=== PATIENT | female | born 1975 | race African-American/Black ===

== ENCOUNTER 2025-04-28 10:48 | Outpatient (AMB) | payer BC, SELFPAY ==
[2025-04-28 10:58] VITALS: BP 120/70; BMI 37.8
--- NOTE | 2025-04-28 10:58 | A.OFFVIS_ITS ---
Vital Signs 04/28/25 10:58 Height 5 ft 11 in Weight 271 lb BMI 37.8 BP 120/70 Intake Visit Reasons: H/O Endo/External Referral/DO NOT RS Program Support Clerk Required: No Information Interpreted: non-clinical & clinical Accompanied by: Self / Same As Patient Allergies sulfamethoxazole (From Bactrim) Allergy (Intermediate, Verified 04/28/25 11:01) Rash sumatriptan (From Imitrex) Allergy (Intermediate, Verified 04/28/25 11:01) Palpitations trimethoprim (From Bactrim) Allergy (Intermediate, Verified 04/28/25 11:01) Rash Is last menstrual period known: No (hysterectomy) HPI Comments Details: Presenting for annual exam. No complaints. Last Pap/HPV was many years ago Last Mammogram was in 12/18 at [facility], no records available by according to patient was normal Last colonoscopy was in 04/19, the recommendation was to repeat in 5 years according to the patient, no records available [facility] Medical History (Updated 04/28/25 @ 11:23 by Adolfo Grant MD) Hyperlipidemia HTN (hypertension) Surgical History (Updated 04/28/25 @ 11:06 by Milly Rsoa CMA) Hx of hysterectomy Hx of tubal ligation Family History (Updated 04/28/25 @ 11:07 by Milly Rosa CMA) Mother HTN (hypertension) Diabetes Breast cancer Social History (Updated 04/28/25 @ 11:08 by Milly Rosa CMA) Household Members Other:: son Housing: House Alcohol intake: never Patient Tobacco Use Status: Never used Tobacco Use of substances other than those prescribed or required for medical reasons: No Current occupational status: employed Current occupation: [employer] Sexually active: No Sexual orientation: Straight/Heterosexual Gender identity: Female Female Reproductive History Menstrual Total pregnancies: 3 Full term: 2 Number of Living Children: 2 Review of Systems Const All systems reviewed & are unremarkable except as noted in HPI and below Card Reports as per HPI Resp Reports as per HPI GI Reports as per HPI and Reports no additional complaints Reports as per HPI Physical Exam Vital Signs: Last Vital Signs BP 120/70 04/28/25 10:58 BMI result Body Mass Index 37.8 Const General: cooperative, healthy appearing and comfortable Chest Chest palpation & inspection: normal inspection of the chest and normal palpation of entire chest wall Breast/axilla inspection: normal inspection of the breasts and normal inspection of the axillae Breast/axilla palpation: normal palpation of the breasts, normal palpation of the axillae and no axillary lymphadenopathy Resp Effort & Inspection: normal respiratory effort Auscultation: clear to auscultation bilaterally Percussion: percussion normal Cardio Palpation: normal PMI Rate: regular rate Rhythm: regular rhythm Heart sounds: no murmurs and no rubs Peripheral pulses: Peripheral pulses 2+ throughout GI Inspection: Yes normal to inspection Palpation (GI): Soft to palpation, nontender, no guarding, not rigid and No hepatosplenomegaly present Percussion: Yes normal to percussion Auscultation: normal bowel sounds Rectal Exam - Female: deferred General: Yes bladder normal to palpation External Female Exam: No lesion Speculum Exam - Vagina: normal appearance of the vagina, normal palpation, normal vaginal discharge and not erythematous Speculum Exam - Cervix: normal appearance of the cervix and normal palpation Bimanual exam- vagina & uterus: normal bimanual exam, normal palpation, uterine size normal, bladder normal to palpation, consistency normal and normal palpation Bimanual Exam- Adnexa, other: normal adnexae, no masses and no tenderness Assessment & Plan Assessment & Plan (1) Well woman exam: Code(s): Z01.419 - Encounter for gynecological examination (general) (routine) without abnormal findings Category: Medical Plan: Cotesting done. Next screening Mammogram scheduled in 12/19 at [facility]. Counseled the patient about the recommended dietary allowance of 1000 mg of Calcium & 600 IU of vitamin D. The patient was instructed to perform monthly self-breast exams and to schedule an annual exam in a year; All questions answered and the patient verbalized understanding. Instructed the patient to schedule annual exam in a year Coding Level of Care Code New Pt Prev Care 40-64y(46730) Diagnoses Well woman exam Z01.419
--- OUTSIDE RECORDS SUMMARY | 2025-04-28 12:36 | XMS_ITS | Patient Health Record ---
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 Name Role Phone Mireya FREEMAN, Tien Primary Care Provider Unavail able Kong Gutiérrez Unavailable [phone] Allergies Allergen (clinical drug ingredient) Drug/Non Drug Allergy documented on EMR Reaction Allergy Type Onset Date Status sumatriptan Imitrex Dizzy Drug Allergy Activ e sulfa hives, fever Drug Allergy Acti ve Reason For Referral No Information Medications Medication SIG (Take, Route, Frequency, Duration) Notes Start Date End Date Status Atorvastatin Calcium 20 MG 1 tablet Oral ly Once a day Active buPROPion HCl ER (XL) 150 MG 1 tablet in the morning Orally Once a day Active hydroCHLOROthiazide 25 MG 1 tablet in th e morning Orally Once a day Active Lisinopril 40 MG 1 tablet Orally Once a day Active Aspirin 81 MG 1 tablet Orally Once a day Active Metoprolol Tartrate 100 MG 1 tablet with food Orally Twice a day Active Omeprazole 20 MG 1 capsule Orally Onc e a day Active Vitamin D 2000 UNIT 1 tablet Orally Once a day Active Social History Tobacco Use: Social History Observation Description Date Details (start date - stop date) Never Smoker NA - NA Tobacco Use/Smoking Question Answer Notes Are you a: nonsmoker Additional Findings: Tobacco Non-User Current no n-smoker Alcohol Screen Question Answer Notes Did you have a drink containing alcohol in the p ast year? No Points 0 Interpretation Negative Tobacco use other than smoking: Question Answer Notes Are you an other tobacco user? No Problems Problem Type SNOMED Code ICD Code Onset Dates Problem Status W/U Status Risk Notes Problem Plantar fascial fibromatosis (17802349) Plantar fascial fibromatosis (M72.2) Active confirmed Plan Of Treatment No Information Insurance Providers Payer Name Payer Address Payer Phone Subscriber Number Group Number Insured Name Patient Relationship to Insured Coverage Start Date Coverage End Date [facility] [address] [place] [address] [id number] Joyce Steward Self - patient is the insured Medical (General) History Medical History History ICD Code Back,Hip,and Knee pain CAD (Cholesterol) Depression Headaches Hiatal hernia High blood pressure Reflux ( GERD) Chicken pox Surgical History Surgery Date(Month/Year) cyst removal, breast 1988 tubal ligation 1999 ectopic removal 2005 hemorrhoidectomy 2014
--- OUTSIDE RECORDS SUMMARY | 2025-04-28 12:36 | XMS_ITS | Encounter Summary ---
Author Organization 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 Role Phone Tien Gomes MD Primary Care Provider Encounter Details Date Type Department Care Team ([facility] st Contact Info) Description 04/22/2024 Lab Requisition [facility] - Main Lab [address] [place] [id number] Sumanth Cooper MD [address] [facility] [address] [place] [id number] Hemorrhage of anus and rectum Social History Tobacco Use Types Packs/Day Years Used Date Smoking Tobacco: Never Assessed Comments Unknown Sex and Gender Information Value Date Recorded Sex Assigned at Not on file Legal Sex Female 2:20 AM EST Gender Identity Not on file Sexual Orientation Not on file documented as of this encounter Plan of Treatment Not on file documented as of this encounter Procedures Procedure Name Priority Date/Time Associated Diagnosis Comments TISSUE EXAM Routine 04/21/2024 Hemorrhage of anus and rectum documented in this encounter Results * Tissue Exam (04/21/2024) Final Diagnosis A. Large Intestine, Cecum, polyp biopsy: - Tubular adenoma. B. Large Intestine, Sigmoid Colon, polyp biopsy: - Hyperplastic polyp. 04/24/2024 12:34 PM [facility] at 1234 EST Clinical Information Hematochezia Polyp 04/24/2024 12:34 PM EST [facility] Gross Description A. Large Intestine, Cecum, polyp biopsy: Labeled cecum colon polyp biopsy . Received in formalin, is an approximately 0.4 cm in greatest diameter rubbery, ortega tissue fragment, which is inked black at the base, wrapped in paper and submitted in toto in one cassette, one piece, multiple levels. B. Large Intestine, Sigmoid Colon, polyp biopsy: Labeled sigmoid colon polyp biopsy . Received in formalin, is an approximately 0.3 cm in greatest diameter soft, white-ortega tissue fragment, which is wrapped in paper and submitted in toto in one cassette, one piece, multiple levels. dvb/SL 04/24/2024 12:34 PM [facility] Disclaimer Unless otherwise specified, all tissue is 10% NB formalin fixed and paraffin embedded. 04/24/2024 12:34 PM [facility] Tissue Sigmoid colon structure / Unknown 04/21/2024 04/22/2024 10:58 AM EST Tissue specimen (specimen) Sigmoid colon structure / Unknown 04/21/2024 04/22/2024 10:58 AM EST us Sumanth Cooper MD LAB PATHOLOGY ORDERABLES Fi nal Result [facility] [address] [place] [address], documented in this encounter Visit Diagnoses Diagnosis Hemorrhage of anus and rectum Hemorrhage of rectum and anus documented in this encounter Care Teams School Photograph Editor Relationship Specialty Start Date End Date Tien Gomes MD [address] PCP - General Internal Medicine 03/31/24 documented as of this encounter
--- OUTSIDE RECORDS SUMMARY | 2025-04-28 12:36 | XMS_ITS | Data Portability ---
Author Organization [facility], Main Office Address [address] [facility] [address] [place] [id number] Care Team Providers Care Dredge Boat Engineer Name Role Phone TIEN GARCIA Primary Care Provider ANDRES HIGGINS Business Area Director SLEEP MEDICINE SERVICES Sleep Medicine [phone] LAUREN ENNIS Power Plant Inspector MARK WOMACK Phys. Med. & Rehab ORTHOPRIDDHI HERNANDEZ General Surgeon DC PORTILLO Urologist [facility] Supervisor Furnace Room [employer] [facility] OPTICAL Hvac Maintenance Technician RADHA LEONARDO Capital Campaign Fundraiser Assessment Encounter Date Assessment Date Assessment LastModified by Organization Details LastModified Time 01/06/2025 01/06/2025 Discussed with patient the signs/symptom s warranted for a return to office visit and/or an ER visit. Patient understood and agreed with the plan. Not available 01/06/2025 13:49:03 Plan of Treatment Reminders Order Date Submit Date Provider Last Modified By Organization Details Last Modified Time Details Appointments FOLLOW UP 30MIN 2025 11:00A M Tien Garcia MD Not available Not available Not available Lab urinalys is, complete 2024 025 AMINTA [facility] (Centralized Electronic Ordering - All Locations), Patient Can Go To The Location Of Their Choice, [id number] 12/12/2024 08:06:49 magnesiu m, serum or plasma 2024 025 AMINTA [facility], [address], [address], [place], [address], 12/12/2024 08:06:51 LDL, direct, serum 2024 025 AMINTA [facility] (Centralized Electronic Ordering - All Locations), Patient Can Go To The Location Of Their Choice, [address] 12/12/2024 08:06:50 CMP, serum or plasma 2024 025 AMINTA [facility], [address], [address], [place], [address], 12/12/2024 08:06:48 HbA1c (hemoglo bin A1c), blood 2024 025 AMINTA [facility], [address], [address], [place], [address], 12/12/2024 08:06:50 vitamin D, 25-hydro xy, total, serum 2024 025 AMINTA [facility], [address], [address], [place], [address], 12/12/2024 08:06:51 Referral physical therapis t referral - right sided neck pain. localize d. 2024 025 [facility], [address] [facility] , [address], [place], [address], 01/06/2025 13:56:46 dermatol ogist referral - for left scalp lesion 2024 025 [facility], [address], [address], [place], [address], 12/11/2024 10:43:06 gynecolo gist referral - Patient to schedule 2024 025 hiren [facility] Automotive Diagnostic Technician, [address], [address], [place], [address], 12/11/2024 11:32:52 sleep medicine referral 2024 025 [facility], [address], [address], [place], [address], 12/11/2024 10:58:28 Procedures cerumen removal (PROC) 2024 025 [facility] In-Office Order, Internal Use Only DO Not Attach Compendium DO Not Attach Compendium, Do Not Delete/merge, [id number] 12/28/2024 15:29:43 Surgeries None recorded . Imaging MAMMO, screenin g, bilatera l - Perform Diagnost ic Mammogra m and Breast Ultrasou nd if needed / Perform Ultrasou nd Guided Aspirati on and/or Breast Biopsy if warrante d 2024 025 [facility], [address], [place], [address], 01/20/2025 14:29:51 Medication Orders Medrol (Sampson) 4 mg tablets in a dose pack 2024 025 [facility], [address] [place] [address], [address], 01/06/2025 13:53:41 magnesiu m 100 mg (as glycinat e) capsule 2024 025 [facility], [address] [place] [address], [address], 01/06/2025 13:54:54 ketocona zole 2 % shampoo 2024 025 [facility], [address] [place] [address], [address], 12/11/2024 10:36:18 magnesiu m 100 mg (as glycinat e) capsule 2024 025 [facility], [address] [facility], [place], [address], 12/11/2024 10:36:10 Patient TargetsNo targets recorded. Patient Instructions Encounter Date Encounter Id Patient Instructions Last Modified By Organization Details Last Modified Time 12/11/2024 [id number] Cervical Cancer Screening awychowski Not available 12/11/2024 10:36:11 body mass index: care instructions awychowski Not available 12/11/2024 10:36:11 learning about healthy weight awychowski Not available 12/11/2024 10:36:11 sleep apnea: care instructions awychowski Not available 12/11/2024 10:36:11 earwax blockage: care instructions awychowski Not available 12/11/2024 10:36:11 Metabolic Dysfunction-Asso ciated Steatotic Liver Disease (MASLD): Care Instructions awychowski Not available 12/11/2024 10:36:11 prediabetes: care instructions awychowski Not available 12/11/2024 10:36:11 constipation: care instructions awychowski Not available 12/11/2024 10:36:11 01/06/2025 [id number] neck pain: care instructions Not available 01/06/2025 13:53:33 [facility] follow [facility] visit, all current and discharge medications (OTC, herbal therapies, supplements) reviewed and reconciled with patient and or caregiver, including potential side effects, drug interactions, instructions, and the consequences of not taking medication. Reviewed potential barriers to medication adherence, such as side effects from medication or cost of medication. [email or web address] Not available 01/06/2025 13:33:35 Reason for Referral Audio Director Referral for Sc reening for malignant neoplasm of cervix Patient to schedule Referring Physician: Family Lisa Medicine, Encounter Date: 12/11/2024 Sleep Medicine Referral for Obstructive sleep apnea syndrome Referring Physician: Family Lisa Medicine, Encounter Date: 12/11/2024 Machinist Job Setter Referral for L esion of scalp for left scalp lesion Referring Physician: Family Venessa Gonzalez, Encounter Date: 12/11/2024 Physical Therapist Referral for Neck pain right sided neck pain. localized. Referring Physician: Natividad Foley, Family Medicine, Encounter Date: 01/06/2025 Results Created Date Observation Date Name Description Value Unit Range Abnormal Flag Note LastModifiedBy Organization Detail LastModifiedTime 09/29/1909/28/2024 exter nal elect rocar diogr aphic recor rnoy more than 48 hours up to 7 days; recor rony, chelsey sis, revie w and inter preta tion (PROC ) Placement BY ADDY Jones Not Available In-Office Order Internal Use Only DO Not Attach Compendium DO Not Attach Compendium, Do Not Delete/merge, [id number] 09/03/2024 15:40:44 12/12/1912/11/2024 COMP. METAB OLIC PANEL (14) glucose 102 mg/dL 70-99 above high normal Not Available [facility] ([facility]) [address] [place], [address], 12/12/2024 08:06:48 12/12/19 25 12/11/2024 COMP. METAB OLIC PANEL (14) BUN 9 mg/dL 6-24 normal Not Available [facility] ([facility]) [address] [place], [address], 12/12/2024 08:06:48 12/12/19 25 12/11/2024 COMP. METAB OLIC PANEL (14) creatinine 0.66 mg/dL 0.57-1 .00 normal Not Available [facility] ([facility]) [address] [place], [address], 12/12/2024 08:06:48 12/12/19 25 12/11/2024 COMP. METAB OLIC PANEL (14) eGFR 107 mL/mi n/1.7 3 >59 normal Not Available [facility] ([facility]) [address] [place], [address], 12/12/2024 08:06:48 12/12/19 25 12/11/2024 COMP. METAB OLIC PANEL (14) BUN/creatini ne ratio 14 9-23 normal Not Available [facility] ([facility]) [address] [facility] [place], [address], 12/12/2024 08:06:48 12/12/19 25 12/11/2024 COMP. METAB OLIC PANEL (14) sodium 141 mmol/ L 134-14 4 normal Not Available [facility] ([facility]) [address] [facility] [place], [address], 12/12/2024 08:06:48 12/12/19 25 12/11/2024 COMP. METAB OLIC PANEL (14) potassium 3.6 mmol/ L 3.5-5. 2 normal Not Available [facility] ([facility]) [address] [facility], [place], [address], 12/12/2024 08:06:48 12/12/19 25 12/11/2024 COMP. METAB OLIC PANEL (14) chloride 102 mmol/ L 96-106 normal Not Available [facility] ([facility]) [address] [facility] [place], [address], 12/12/2024 08:06:48 12/12/19 25 12/11/2024 COMP. METAB OLIC PANEL (14) carbon dioxide, total 25 mmol/ L 20-29 normal Not Available [facility] ([facility]) [address] [facility] [place], [address], 12/12/2024 08:06:48 12/12/19 25 12/11/2024 COMP. METAB OLIC PANEL (14) calcium 9.3 mg/dL 8.7-10 .2 normal Not Available [facility] ([facility]) [address] [facility] [place], [address], 12/12/2024 08:06:48 12/12/19 25 12/11/2024 COMP. METAB OLIC PANEL (14) protein, total 6.8 g/dL 6.0-8. 5 normal Not Available [facility] ([facility]) [address] [place], [address], 12/12/2024 08:06:48 12/12/19 25 12/11/2024 COMP. METAB OLIC PANEL (14) albumin 4.2 g/dL 3.9-4. 9 normal Not Available [facility] ([facility]) [address] [place], [address], 12/12/2024 08:06:48 12/12/19 25 12/11/2024 COMP. METAB OLIC PANEL (14) globulin, total 2.6 g/dL 1.5-4. 5 Not Available [facility] ([facility]) [address] [place], [address], 12/12/2024 08:06:48 12/12/19 25 12/11/2024 COMP. METAB OLIC PANEL (14) bilirubin, total 0.3 mg/dL 0.0-1. 2 normal Not Available [facility] ([facility]) [address] [place], [address], 12/12/2024 08:06:48 12/12/19 25 12/11/2024 COMP. METAB OLIC PANEL (14) alkaline phosphatase 111 IU/L 44-121 normal Not Available [facility] ([facility]) [address] [place], [address], 12/12/2024 08:06:48 12/12/19 25 12/11/2024 COMP. METAB OLIC PANEL (14) AST (SGOT) 17 IU/L 0-40 normal Not Available [facility] ([facility]) [address] [place], [address], 12/12/2024 08:06:48 12/12/19 25 12/11/2024 COMP. METAB OLIC PANEL (14) ALT (SGPT) 16 IU/L 0-32 normal Not Available [facility] ([facility]) [address], [place], [address], 12/12/2024 08:06:48 12/12/19 25 12/11/2024 URINA LYSIS , COMPL ETE specific gravity 1.024 1.005- 1.030 normal Not Available [facility] ([facility]) [address] [place], [address], 12/12/2024 08:06:49 12/12/19 25 12/11/2024 URINA LYSIS , COMPL ETE pH 6.5 5.0-7. 5 normal Not Available [facility] ([facility]) [address] [place], [address], 12/12/2024 08:06:49 12/12/19 25 12/11/2024 URINA LYSIS , COMPL ETE urine-color Yellow yellow Not Available [facility] ([facility]) [address] [place], [address], 12/12/2024 08:06:49 12/12/19 25 12/11/2024 URINA LYSIS , COMPL ETE appearance Clear clear Not Available [facility] ([facility]) [address] [place], [address], 12/12/2024 08:06:49 12/12/19 25 12/11/2024 URINA LYSIS , COMPL ETE WBC esterase Negati ve negati ve Not Available [facility] ([facility]) [address] [place], [address], 12/12/2024 08:06:49 12/12/19 25 12/11/2024 URINA LYSIS , COMPL ETE protein 1+ negati ve/tra ce abnormal Not Available [facility] ([facility]) [address] [place], [address], 12/12/2024 08:06:49 12/12/19 25 12/11/2024 URINA LYSIS , COMPL ETE glucose Negati ve negati ve Not Available [facility] ([facility]) [address] [facility], [place], [address], 12/12/2024 08:06:49 12/12/1912/11/2024 URINA LYSIS , COMPL ETE ketones Negati ve negati ve Not Available [facility] ([facility]) [address] [facility], [place], [address], 12/12/2024 08:06:49 12/12/19 25 12/11/2024 URINA LYSIS , COMPL ETE occult blood Negati ve negati ve Not Available [facility] ([facility]) [address] [facility], [place], [address], 12/12/2024 08:06:49 12/12/1912/11/2024 URINA LYSIS , COMPL ETE bilirubin Negati ve negati ve Not Available [facility] ([facility]) [address] [facility], [place], [address], 12/12/2024 08:06:49 12/12/1912/11/2024 URINA LYSIS , COMPL ETE urobilinogen ,semi-qn 0.2 mg/dL 0.2-1. 0 normal Not Available [facility] ([facility]) [address] [place], [address], 12/12/2024 08:06:49 12/12/1912/11/2024 URINA LYSIS , COMPL ETE nitrite, urine Negati ve negati ve Not Available [facility] ([facility]) [address] [place], [address], 12/12/2024 08:06:49 12/12/1912/11/2024 URINA LYSIS , COMPL ETE microscopic examination See below: Micro scopi c was indic ated and was perfo rmed. Not Available [facility] ([facility]) [address] [place], [address], 12/12/2024 08:06:49 12/12/19 25 12/11/2024 URINA LYSIS , COMPL ETE microscopic examination PLANT HEALTH MANAGER Not Available [facility] ([facility]) [address] [facility], [place], [address], 12/12/2024 08:06:49 12/12/19 25 12/12/2024 URINA LYSIS , COMPL ETE WBC 0-5 /hpf 0 - 5 Not Available [facility] ([facility]) [address] [facility], [place], [address], 12/12/2024 08:06:49 12/12/19 25 12/12/2024 URINA LYSIS , COMPL ETE RBC None seen /hpf 0 - 2 Not Available [facility] ([facility]) [address] [facility], [place], [address], 12/12/2024 08:06:49 12/12/19 25 12/12/2024 URINA LYSIS , COMPL ETE epithelial cells (non renal) >10 /hpf 0 - 10 abnormal Not Available [facility] ([facility]) [address] [facility], [place], [address], 12/12/2024 08:06:49 12/12/19 25 12/12/2024 URINA LYSIS , COMPL ETE epithelial cells (renal) PLANT HEALTH MANAGER Not Available [facility] ([facility]) [address] [facility], [place], [address], 12/12/2024 08:06:49 12/12/19 25 12/12/2024 URINA LYSIS , COMPL ETE casts None seen /lpf none seen Not Available [facility] ([facility]) [address] [facility], [place], [address], 12/12/2024 08:06:49 12/12/19 25 12/12/2024 URINA LYSIS , COMPL ETE cast type PLANT HEALTH MANAGER Not Available [facility] ([facility]) [address] [facility], [place], [address], 12/12/2024 08:06:49 12/12/19 25 12/12/2024 URINA LYSIS , COMPL ETE crystals PLANT HEALTH MANAGER Not Available [facility] ([facility]) [address] [facility], [place], [address], 12/12/2024 08:06:49 12/12/19 25 12/12/2024 URINA LYSIS , COMPL ETE crystal type PLANT HEALTH MANAGER Not Available [facility] ([facility]) [address] [facility], [place], [address], 12/12/2024 08:06:49 12/12/19 25 12/12/2024 URINA LYSIS , COMPL ETE mucus threads PLANT HEALTH MANAGER Not Available [facility] ([facility]) [address] [facility], [place], [address], 12/12/2024 08:06:49 12/12/19 25 12/12/2024 URINA LYSIS , COMPL ETE bacteria Few none seen/f ew Not Available [facility] ([facility]) [address] [facility], [place], [address], 12/12/2024 08:06:49 12/12/1912/12/2024 URINA LYSIS , COMPL ETE yeast PLANT HEALTH MANAGER Not Available [facility] ([facility]) [address] [facility], [place], [address], 12/12/2024 08:06:49 12/12/19 25 12/12/2024 URINA LYSIS , COMPL ETE trichomonas PLANT HEALTH MANAGER Not Available [facility] ([facility]) [address] [facility], [place], [address], 12/12/2024 08:06:49 12/12/19 25 12/12/2024 URINA LYSIS , COMPL ETE comment PLANT HEALTH MANAGER Not Available [facility] ([facility]) [address] [facility], [place], [address], 12/12/2024 08:06:49 12/12/19 25 12/12/2024 LDL FRANNIE STERO L (DIRE CT) LDL chol. (direct) 127 mg/dL 0-99 above high normal Not Available [facility] ([facility]) [address] [facility], [place], [address], 12/12/2024 08:06:50 12/12/19 25 12/12/2024 LDL FRANNIE STERO L (DIRE CT) LDL direct comment: PLANT HEALTH MANAGER Not Available [facility] ([facility]) [address] [facility], [place], [address], 12/12/2024 08:06:50 12/12/19 25 12/11/2024 HEMOG LOBIN A1C hemoglobin A1C 6.3 % 4.8-5. 6 above high normal Predi abete s: 5.7 - 6.4 Diabe guillermo: >6.4 Glyce george contr ol for adult s with diabe guillermo: <7.0 Not Available [facility] ([facility]) [address] [facility], [place], [address], 12/12/2024 08:06:50 12/12/19 25 12/12/2024 VITAM IN D, 25-HY DROXY vitamin D, 25-hydroxy 28.6 NG/mL 30.0-1 00.0 below low normal Vitam in D defic iency has been defin ed by the Insti tute of Medic ine and an Endoc rine Socie ty pract ice guide line as a level of serum 25-OH vitam in D less than 20 ng/mL (1,2) . The Endoc rine Socie ty went on to furth er defin e vitam in D insuf ficie ncy as a level betwe en 21 and 29 ng/mL (2). 1. IOM (Inst itute of Medic ine). 2010. Dieta ry refer ence intak es for calci um and D. Abdulkadir marmolejo [place]: The [facility] Press . 2. Iban crews MF, Kranthi ey [place], Stephanie off-F errar i COOPER, et al. Evalu ation , treat ment, and preve ntion of vitam in D defic iency : an Endoc rine Socie ty clini aleksandar pract ice guide line. JCEM. 2010; 96(7) :1911 -30. Not Available [facility] ([facility]) [address] [facility], [place], [address], 12/12/2024 08:06:51 12/12/19 25 12/12/2024 MAGNE SIUM magnesium 2.0 mg/dL 1.6-2. 3 normal Not Available [facility] ([facility]) [address] [facility], [place], [address], 12/12/2024 08:06:51 12/29/1912/28/2024 cerum en remov al (PROC ) done by Maryan Not Available In-Office Order Internal Use Only DO Not Attach Compendium DO Not Attach Compendium, Do Not Delete/merge, [id number] 12/28/2024 15:03:52 10/07/19 25 09/28/2024 exter nal elect rocar diogr aphic recor ding more than 48 hours up to 7 days; recor ding, chelsey sis, revie w and inter preta tion (PROC ) No observ ation record ed. AMINTA In-Office Order Internal Use Only DO Not Attach Compendium DO Not Attach Compendium, Do Not Delete/merge, [id number] 10/07/2024 12:13:48 01/21/20 25 01/20/2025 MAMMO , scree yeimy, digit al, bilat eral PROCED URE: MM Digita l Mammo Screen ing INDICA TION: Screen ing for breast cancer . COMPAR IVIS: Multip le priors , most recent 024 TECHNI QUE: Full-f ield digita l CC and MLO 3D tomosy nthesi s images of both breast s were acquir ed. Comput er-aid ed detect ion (CAD) was utiliz ed in the interp retati on of this study. DENSIT Y: There are scatte red areas of fibrog landul ar densit y. FINDIN GS: No suspic ious masses , suspic ious microc alcifi cation s, or areas of suzanne ectura l distor tion are seen in either breast to sugges t malign dhiraj. IMPRES CONCHA: No mammog raphic eviden ce of malign dhiraj. RECOMM ENDATI ON: Annual mammog raphic screen ing BI-RAD S: 1 (Negat shama) Lay letter mailed to fady pizarro WSN: [id number] Orderi ng Physic tasha: Tien Byrnes Dictat ed By: Licha Alanis MD Dictat ed Date/T michelle: 2:21 pm Review ed By: Licha Aalnis MD Signed By: Licha Alanis MD Signed Date/T michelle: 2:21 pm Transc ribed By: NICKY Transc riptio n Date/T michelle: 2:18 pm Birads : Fady pizarro Class: Outpat ient [id number] (Outpt Imaging) [address] [place], [address], 01/26/2025 15:04:58 01/21/2001/20/2025 MAMMO , scree yeimy, bilat eral No observ ation record ed. [email or web address] [facility] [address] [place], [address], 01/26/2025 15:05:21 Result Notes Documentation Provider Name and Address Organization Details Recorded Time Mammo, Screening, Digital, Bilateral : PROCEDURE: MM Digital Mammo Screening INDICATION: Screening for breast cancer. COMPARISON: Multiple priors, most recent 01/18/2024 TECHNIQUE: Full-field digital CC and MLO 3D tomosynthesis images of both breasts were acquired. Computer-aided detection (CAD) was utilized in the interpretation of this study. DENSITY: There are scattered areas of fibroglandular density. FINDINGS: No suspicious masses, suspicious microcalcifications, or areas of architectural distortion are seen in either breast to suggest malignancy. IMPRESSION: No mammographic evidence of malignancy. RECOMMENDATION: Annual mammographic screening BI-RADS: 1 (Negative) Lay letter mailed to patient WSN: [id number] Ordering Physician: Tien Garcia Dictated By: Dean Alanis MD Dictated Date/Time: 01/20/25 2:21 pm Reviewed By: Dean Aalnis MD Signed By: Dean Alanis MD Signed Date/Time: 01/20/25 2:21 pm Transcribed By: NICKY Tape Recorder Repairer Date/Time: 01/20/25 2:18 pm Birads: Patient Class: Outpatient Penelope Willoughby natalie [facility] 01/26/2025 15:04:58 Problems Name Problem SNOMED Code Status Onset Date Resolution Date Notes Provider Name and Address Organization Details Recorded Time Atypical squamous cells of undetermi sarah significa nce on cervical Papanicol aou smear 772423099 Completed 201102/03/2016 Tien Garcia MD [address] [facility] [address], [place], [address] [facility] 6 11:19:33 Migraine 61297984 Active 2015 SHE Majano [facility] 3 10:12:38 Chronic constipat ion 963225882 Active 2015 [facility] 3 10:12:38 Hemorrhoi ds 34752822 Active 2015 SHE Majano [facility] 3 10:12:38 Gastroeso phageal reflux disease 220435318 Active 2015 SHE Bowman [facility] 5 14:31:25 Hypertens shama disorder 26331726 Active 2015 Kaelyn estrada [facility] 8 09:28:47 Hyperchol esterolem ia 84625413 Active 2015 Kaelyn estrada [facility] 8 09:28:47 Genital herpes simplex 90786048 Active 2015 SHE Majano [facility] 3 10:12:38 Exercise- induced asthma 77829185 Active 2015 SHE Majano, [facility] 3 10:12:38 Obstructi ve sleep apnea syndrome 71997306 Active 2015 auto CPAP 6-16cm H2O SHE Majnao, [facility] 3 10:12:38 Uterine leiomyoma 65830514 Completed 201607/02/2017 Tien Garcia MD [address] [facility] [address], [place], [address] , [facility] 8 11:07:44 Vitamin D deficienc y 38957826 Active 2016 Aliya Mehdi SHE Rodriguez, [facility] 3 10:12:38 Proteinur ia 72987164 Completed 201607/20/2019 Tien Garcia MD [address] [facility] [address] [facility], [place], [address] , [facility] 5 06:27:36 Pain of multiple joints 77113141 Completed 201607/02/2017 Tien Garcia MD [address] [address], [place], [address] , [facility] 8 11:07:48 Foot pain 16840054 Completed 201607/02/2017 Tien Garcia MD [address] [facility] [address] [facility], [place], [address] , [facility] 8 11:07:27 Proteinur ia 83474082 Active 2016 Tien Garcia MD [address] [address], [place], [address] , [facility] 5 06:27:36 Atypical chest pain 362419955 Completed 201607/18/2018 Tien Garcia MD [address] [address], [place], [address] , [facility] 9 09:11:17 Major depressio n in remission 66437186 Active 2017 SHE Majano, [facility] 3 10:12:38 History of endometri osis 68156693999 477151 Active 2017 SHE Majano, [facility] 3 10:12:38 Non-alcoh olic fatty liver 603970554 Active 2017 Aliya SHE Fallon, [facility] 3 10:12:38 Plantar fasciitis 623860843 Completed 201807/20/2019 left Tien Garcia MD [address], [place], [address] , [facility] 0 10:52:36 Pityriasi s versicolo r 60242452 Active 2018 SHE Majano, [facility] 3 10:12:38 Macromast ia 444076355 Active 2018 [facility], [facility] 3 10:12:38 Morbid obesity 563594714 Active 2018 SHE Majano, [facility] 3 10:12:38 Impaired fasting glycemia 689344849 Completed 201807/20/2019 Tien Garcia MD [address], [place], [address] , [facility] 1 13:52:13 Prolonged QT interval 300342120 Active 2018 SHE Majano, [facility] 3 10:12:38 Knee pain Active 2018 SHE Majano, [facility] 3 10:12:38 Sprain of medial collatera l ligament of knee 35346780 Completed 201807/20/2019 Tien Garcia MD [address] [address], [place], [address] , [facility] 0 10:58:51 Osteoarth ritis of right hip joint 20759357633 9107 Active 2019 SHE Majano, [facility] 3 10:12:38 Uterine cervix absent 772599557 Active 2020 Tien Garcia MD [address] [address], [place], [address] , [facility] 1 08:54:29 Impaired fasting glycemia 854203261 Active 2020 SHE Majano, [facility] 3 10:12:38 Blood in urine 89767194 Completed 202003/21/2021 Tien Garcia MD [address] [address], [place], [address] , [facility] 1 09:02:04 Leukocyto sis 857972246 Completed 202003/21/2021 Tien Garcia MD [address] [address], [place], [address] , [facility] 1 09:03:09 Alkaline phosphata se above reference range 427072684 Active [facility] 3 10:12:38 Osteoarth ritis of wrist 945295465 Active 2020 SHE Majano, [facility] 3 10:12:38 Eczema 86010958 Completed 202112/09/2023 Tien Garcia MD [address] [facility] [address], [place], [address] , [facility] 4 17:02:37 Constipat ion 57288407 Completed 202212/09/2023 Tien Garcia MD [address] [facility] [address], [place], [address] , [facility] 4 17:02:23 Pain in right thumb 48359170344 07803 Completed 202211/22/2022 Tien Garcia MD [address] [facility] [address], [place], [address] , [facility] 3 15:18:55 Pain of right knee joint 91080380014 4100 Completed 202212/09/2023 Tien Garcia MD [address] [facility] [address], [place], [address] , [facility] 4 14:51:59 Prediabet es 320473863 Active 2022 SHE Majano, [facility] 3 10:12:38 Uterus absent 667177286 Active 2023 Tien Garcia MD [address] [facility] [address], [place], [address] , [facility] 4 15:00:10 Irritable bowel syndrome character ized by constipat ion 317771638 Active 2023 Tien Garcia MD [address] [facility] [address], [place], [address] , [facility] 4 20:20:51 Lipoma of upper arm 769340557 Active 2023 Tien Garcia MD [address] [facility] [address], [place], [address] , [facility] 4 09:37:13 Tubular adenomato us polyp of colon 000187243 Active 2023 Tien Garcia MD [address] [facility] [address], [place], [address] , [facility] 4 15:20:49 Palpitati ons 21074990 Active 2024 Tien Garcia MD [address] [facility] [address], [place], [address] , [facility] 5 17:23:00 Right bundle branch block 31072497 Active 2024 Tien Garcia MD [address] [facility] [address], [place], [address] , [facility] 5 17:27:14 Premature atrial contracti on 600073228 Active 2024 Tien Garcia MD [address] [facility] [address], [place], [address] , [facility] 5 06:37:58 Multiple premature ventricul ar complexes 686382029 Active 2024 Tien Garcia MD [address] [facility] [address], [place], [address] , [facility] 5 06:38:06 Body mass index 40+ - severely obese 150188793 Active 2024 Tien Garcia MD [address] [facility] [address], [place], [address] , [facility] 5 10:16:50 Problem Notes None recorded. Procedures Surgical History Date Name Laterality Status Provider Name and Address Organization Details Recorded Time 025 Most Recent Mammogram completed Penelope Willoughby [facility] 01/26/2025 15:04:54 025 Mammogram screening completed Penelope Willoughby [facility] 01/26/2025 15:04:34 024 Colonoscopy completed Tien Garcia MD [address] [facility], [place], [address], [facility] 04/24/2024 15:20:33 019 electrocardiogram with exercise test completed Tien Garcia MD [address] [facility] [address] [facility], [place], [address], [facility] 03/11/2019 06:40:03 017 Date of Last Pap Smear completed Anna Ramos MA [facility] 08/02/2016 09:17:39 016 Advanced Care Planning completed Tien Garcia MD [address] [address], [place], [address], [facility] 02/03/2016 10:34:39 015 Hemorrhoidectomy completed Tien Garcia MD [address] [address], [place], [address], [facility] 02/03/2016 10:09:57 013 Hysterectomy completed Alma Alejandro RN [facility] 03/31/2019 14:39:05 011 Date of Last Colonoscopy completed Kaelyn Sanders [facility] 08/08/2016 13:03:02 011 Colonoscopy completed Kaelyn Sanders [facility] 08/08/2016 13:02:49 Breast Surgery completed Anna Ramos MA [facility] 02/03/2016 09:42:35 Tubal Ligation completed Anna Ramos MA [facility] 02/03/2016 09:42:41 Imaging Results None recorded. Procedure Notes None recorded. Medical Equipment None Reported. Allergies Allergen ID Allergen Name Allergen Category Reaction Reaction Severity Criticality Documentation Date Start Date Code Code System Note Provider Name and Address Organization Details Recorded Time 05882 Bactrim medicatio n fever Not available Not available 02/03/2016 64630 9 [facility] 6 09:38:48 48545 Imitrex medicatio n other Not available Not available 02/03/2016 62258 3 RxNorm camacho donohue and [facility] 7 09:10:38 73245 sulfameth oxazole / trimethop rim medicatio n Not available Not available Not available 04/09/20252023 61141 RxNorm Other React ion(s ): n/v/f unrec ogniz ed react ion (text : GI intol eranc e, code: [id number]) (from [facility] e) Not Available [employer] - prod 5 03:15:24 61618 sumatript an medicatio n Not available Not available Not available 04/09/20252023 76192 RxNorm Not Available [employer] - prod 5 03:15:24 Medications Name Sig Start Date Stop Date Status Note LastModified by Organization Details LastModified Time vitamin d3 (frannie) 50mcg cap TAKE 2 CAPSULES BY MOUTH ONCE DAILY 01/06 completed Not Available Not Available Not Available eq vegatable laxative8. 6mg tab 03/21 completed Not Available Not Available Not Available cyclobenza shwetha 10 mg tablet TAKE 1 TABLET BY MOUTH THREE TIMES DAILY NEEDED FOR MUSCLE SPASMS FOR UP TO 7 DAYS. active Not Available Not Available No t Available amoxicilli n 500 mg capsule 10/27 completed Not Available Not Available Not Available Miralax 17 gram/dose oral powder Take 17 g every day by oral route as needed. 12/11 completed Not Available Not Available Not Available dicloxacil leonor 500 mg capsule 03/18 completed Not Available Not Available Not Available doxycyclin e hyclate 100 mg capsule Take 1 capsule twice a day by oral route for 7 days. 07/18 completed Not Available Not Available Not Available atorvastat in 20 mg tablet TAKE 1 TABLET BY MOUTH ONCE DAILY active Not Available Not Available No t Available ketoconazo le 2 % shampoo APPLY 1 APPLICAT ION TOPICALL Y EVERY DAY NEEDED FOR 14 DAYS active Not Available Not Available No t Available cetirizine 10 mg tablet Take 1 tablet every day by oral route for 30 days. 09/20 completed Not Available Not Available Not Available metoprolol tartrate 100 mg tablet Take 1 tablet by mouth twice daily 2024 active Not Available Not Available Not Avai lable fluconazol e 150 mg tablet TAKE ONE TABLET BY MOUTH A ONE-TIME DOSE 11/22 completed Not Available Not Available Not Available senna 8.6 mg tablet TAKE 2 TABLETS BY MOUTH ONCE DAILY active Not Available Not Available No t Available meloxicam 15 mg tablet Take 1 tablet as needed by oral route for 30 days. 12/08 completed Not Available Not Available Not Available metronidaz ole 0.75 % (37.5 mg/5 gram) vaginal gel INSERT 1 APPLICAT ORFUL VAGINALL Y ONCE DAILY AT BEDTIME FOR 5 DAYS 07/04 completed Not Available Not Available Not Available clonazepam 0.5 mg tablet Take 1 tablet twice a day by oral route as needed. 07/18 completed Not Available Not Available Not Available Doc-Q-Lace 100 mg capsule TAKE ONE CAPSULE BY MOUTH ONCE DAILY DIRECTED 07/20 completed Not Available Not Available Not Available ciprofloxa esteban 250 mg tablet 09/20 completed Not Available Not Available Not Available valacyclov ir 500 mg tablet TAKE 1 TABLET BY MOUTH ONCE DAILY NEEDED active Not Available Not Available No t Available omeprazole 40 mg capsule,de layed release 02/02 completed Not Available Not Available Not Available aspirin 81 mg tablet,del ayed release TAKE 1 TABLET BY MOUTH ONCE DAILY active Not Available Not Available No t Available triamcinol one acetonide 0.1 % topical cream APPLY A THIN LAYER TO THE AFFECTED AREA(S) BY TOPICAL ROUTE 2 TIMES PER DAY 01/06 completed Not Available Not Available Not Available simvastati n 40 mg tablet Take 1 tablet every day by oral route. 08/31 completed Not Available Not Available Not Available pantoprazo le 20 mg tablet,del ayed release Take 1 tablet by mouth daily 04/30 completed Not Available Not Available Not Available amoxicilli n 875 mg tablet 06/13 completed Not Available Not Available Not Available lorazepam 0.5 mg tablet Take 1 tablet as needed by oral route as directed . 11/30 completed Not Available Not Available Not Available pantoprazo le 40 mg tablet,del ayed release TAKE 1 TABLET BY MOUTH ONCE DAILY active Not Available Not Available No t Available simvastati n 20 mg tablet Take 1 tablet by mouth daily at bedtime. 08/31 completed Not Available Not Available Not Available clotrimazo le-betamet hasone 1 %-0.05 % topical cream PRN 04/26 completed Not Available Not Available Not Available lansoprazo le 30 mg capsule,de layed release Take 1 tablet by mouth daily as directed 09/03 completed Not Available Not Available Not Available metoprolol tartrate 50 mg tablet Take 1.5 tablets twice a day by oral route as directed for 30 days. 07/02 completed Not Available Not Available Not Available lisinopril 30 mg tablet 02/02 completed Not Available Not Available Not Available betamethas one dipropiona te 0.05 % topical cream APPLY CREAM TOPICALL Y TO AFFECTED AREAS OF THE HANDS AND BEHIND THE EARS TWICE DAILY FOR 2 WEEKS, BREAK FOR ONE WEEK, REPEAT NEEDED FOR FLARES 01/06 completed Not Available Not Available Not Available omeprazole 20 mg capsule,de layed release TAKE 1 CAPSULE BY MOUTH ONCE DAILY DIRECTED 2024 active Not Available Not Available Not Avai lable hydrochlor othiazide 25 mg tablet TAKE 1 TABLET BY MOUTH ONCE DAILY 07/10 completed Not Available Not Available Not Available lorazepam 1 mg tablet Take 1 tablet as needed by oral route for 4 days. 02/12 completed for flying Not Available Not Available Not Available methylpred nisolone 4 mg tablets in a dose pack TAKE BY MOUTH DIRECTED ON INSIDE OF PACKAGE active Not Available Not Available No t Available albuterol sulfate HFA 90 mcg/actuat ion aerosol inhaler INHALE 2 PUFFS BY MOUTH EVERY 4 TO 6 HOURS NEEDED FOR 25 DAYS active Not Available Not Available No t Available betamethas one dipropiona te 0.05 % topical ointment APPLY OINTMENT TO AFFECTED AREAS ON THE HANDS TWICE DAILY FOR TWO WEEKS BREAK FOR ONE WEEK THEN REPEAT NEEDED 09/26 completed Not Available Not Available Not Available lisinopril 40 mg tablet TAKE 1 TABLET BY MOUTH ONCE DAILY active Not Available Not Available No t Available naproxen 500 mg tablet TAKE 1 TABLET BY MOUTH TWICE DAILY NEEDED active Not Available Not Available No t Available magnesium 200 mg tablet Take 1 tablet every day by oral route for 30 days. 03/13 completed Not Available Not Available Not Available azithromyc in 500 mg tablet TAKE 2 TABLETS BY MOUTH ONCE DAILY 03/21 completed Not Available Not Available Not Available cyclobenza shwetha 5 mg tablet 02/02 completed Not Available Not Available Not Available bupropion HCl XL 300 mg 24 hr tablet, extended release 08/02 completed Not Available Not Available Not Available bupropion HCl XL 150 mg 24 hr tablet, extended release TAKE 1 TABLET BY MOUTH ONCE DAILY DIRECTED 09/20 completed Not Available Not Available Not Available senna 8.6 mg capsule Take 2 tablets every day by oral route for 90 days. active Not Available Not Available No t Available hydrochlor othiazide 12.5 mg tablet TAKE 1 TABLET BY MOUTH ONCE DAILY active Not Available Not Available No t Available peg 3350-elect rolytes 236 gram-22.74 gram-6.74 gram-5.86 gram solution MIX PER DIRECTIO NS, THEN DRINK 8 OUNCE GLASSES BY MOUTH EVERY 10 TO 15 MINUTES DIRECTED BY THE DOCTOR 09/03 completed Not Available Not Available Not Available omeprazole 20 mg tablet,del ayed release TAKE 1 TABLET BY MOUTH ONCE DAILY active Not Available Not Available No t Available cholecalci ferol (vitamin D3) 50 mcg (2,000 unit) capsule TAKE 2 CAPSULES BY MOUTH ONCE DAILY active Not Available Not Available No t Available Vitamin D3 50 mcg (2,000 unit) tablet Take 1 unit every day by oral route. 07/02 completed Not Available Not Available Not Available Probiotic 1 daily active Not Available Not Av ailable Not Available PreviDent 5000 Booster Plus 1.1 % dental paste BRUSH TEETH AT BEDTIME AND SPIT OUT EXCESS. DO NOT RINSE OUT. 12/08 completed Not Available Not Available Not Available Metamucil 3.4 gram/5.4 gram oral powder Take 3.4 g every day by oral route. 12/11 completed Not Available Not Available Not Available Paxlovid 300 mg (150 mg x 2)-100 mg tablets in a dose pack Take 3 tablets twice a day by oral route as directed for 5 days. 07/26 completed Not Available Not Available Not Available magnesium 100 mg (as glycinate) capsule TAKE 1 CAPSULE BY MOUTH ONCE DAILY AT BEDTIME active Not Available Not Available No t Available Vitals Date Recorded Body height Body mass index (BMI) Body weight Heart rate Oxygen saturation Body temperature Systolic And Diastolic Provider Name and Address Organization Details Last Updated DateTime 5 177.17 cm 40.2 kg/m2 908410. 68 g 87 /min 96 % 97.3 [degF] 135/84 mm[Hg] Renata marshall MA [facility] 5 09:41:28 Date Recorded Body height Body mass index (BMI) Body weight Heart rate Oxygen saturation Body temperature Systolic And Diastolic Provider Name and Address Organization Details Last Updated DateTime 5 177.17 cm 40.8 kg/m2 299458. 2 g 84 /min 98 % 98.1 [degF] 132/85 mm[Hg] Katie Lora [facility] 5 13:38:34 Date Recorded Body height Body mass index (BMI) Body weight Heart rate Oxygen saturation Body temperature Systolic And Diastolic Provider Name and Address Organization Details Last Updated DateTime 5 177.17 cm 39.5 kg/m2 145740. 72 g 91 /min 96 % 97.5 [degF] 118/72 mm[Hg] Renata marshall MA [facility] 5 10:18:57 Social History Question Answer Notes LastModified by Organizat ion Details LastModified Time Tobacco Smoking Status Never Smoker SHE Bejarano [facility] 02/03/2016 09:41:22 Do You Have An Advance Directive? Yes HCP/ Sister-RaDavid cobb-Sunita Information not available 02/21/2023 Is Blood Transfusion Acceptable In An Emergency? Yes andrea Information not available 02/03/2016 What Is Your Level Of Caffeine Consumption? Occasional Soda- Occ Information not available 12/09/2023 How Much Tobacco Do You Chew? None Information not available 11/30/2016 What Type Of Diet Are You Following? REGULAR Information not available 02/03/2016 Which Illicit Or Recreational Drugs Have You Used? None Information not available 02/03/2016 Live Alone Or With Others? With Others 1 Jeremiah che Information not available 02/21/2023 Do You Take Precautions To Prevent Distracted Driving? Yes Information not available 02/03/2016 How Often Do You Need To Have Someone Help You When You Read Instructions, Pamphlets, Or Other Written Material From Your Doctor Or Pharmacy? Never Information not available 02/03/2016 Have You Served In The ? No Information not available 02/03/2016 Have You Or Anyone In Your Household Had Any Of The Following Symptoms In The Last 14 Days: Sore Throat, Cough, Chills, Body Aches For Unknown Reasons, Shortness Of Breath For Unknown Reasons, Loss Of Smell, Loss Of Taste, Fever At Or Greater Than 100 Degrees Fahrenheit? No Information not available 09/20/2020 Are You Or Anyone In Your Household A Health Care Provider Or Emergency Responder? No Information not available 09/20/2020 To The Best Of Your Knowledge Have You Been In Close Proximity To Any Individual Who Tested Positive For COVID-19? No Information not available 09/20/2020 *AWV ONLY* Are You Presently Prescribed Opioid Medication By PCP Or Specialist? If YES -Provider Assess The Benefit For Other, Non-opioid Pain Therapies Instead, Even If The Patient Does Not Have OUD But Is Possibly At Risk. No Information not available 09/20/2020 Have You Recently Traveled To A COVID-19 High Risk Area Or Gathering In The Last 10 Days? No Information not available 09/20/2020 What Was The Date Of Your Most Recent Tobacco Screening? 12/11/2024 [email or web address] Information not available 12/11/2024 How Many Children Do You Have? 2 Xander And Ferny () Information not available 09/26/2021 Do You Use Protection During Sex? Usually Information not available 09/26/2021 Do You Use Your Seat Belt Or Car Seat Routinely? Yes Information not available 09/26/2021 Seat Belts Used Routinely Yes Information not available 02/21/2023 Are You Sexually Active? Yes Information not available 02/21/2023 Smoke Alarm In Home Yes Information not available 02/21/2023 Do You Have Smoke And Carbon Monoxide Detectors In Your Home? Yes Information not available 09/26/2021 At What Age Did You Start Smoking Tobacco? 0 Information not available 11/30/2016 Are You Passively Exposed To Smoke? No Information not available 02/03/2016 How Much Tobacco Do You Smoke? No Information not available 11/30/2016 Do You Use Sunscreen Routinely? No Information not available 09/26/2021 How Many Years Have You Smoked Tobacco? 0 Information not available 11/30/2016 Sex: Unknown Functional Status Question Answer Note LastModified by Optraceat ion Details LastModified Time Do you use any illicit or recreational drugs? No Information not available 02/21/2023 Do you or have you ever used any other forms of tobacco or nicotine? No Information not available 02/21/2023 What is your level of alcohol consumption? None Information not available 02/03/2016 Do you or have you ever used smokeless tobacco? Never used smokeless tobacco Information not available 07/20/2019 Are you currently employed? Yes Information not available 02/03/2016 Are you able to walk independently without assistance or assistive devices? YESWOREST Information not available 02/21/2023 Are you able to care for yourself independently? 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 Never used electronic cigarettes Information not available 02/21/2023 What is your exercise level? None Information not available 12/09/2023 Mental Status None recorded. Family History Relationship Description Onset Age of this Age Resolved Age Notes LastModified by Organization Details LastModified Time Mother Diabetes mellitus [email or web address] Not available 2015 09:40:32 Mother Malignant neoplasm of breast [email or web address] Not available 2015 09:40:48 Father Family history unknown [email or web address] Not available 2022 10:08:39 Brother Bipolar disorder [email or web address] Not available 2022 10:08:39 Sister Well adult Not available 02/21/2023 10:08:39 Son Well adult Not available 02/21/2023 10:08:39 Son Well adult Not available 02/21/2023 10:08:39 Medical History Condition Response Obesity Y Reflux/GERD Y Constipation Y High Cholesterol Y Headaches/Migraines Y Hypertension Y Asthma Y GI Problems Y Gynecological History Statement/Question Response Date of Last Pap Smear 07/24/2016 Date of Last Colonoscopy 01/15/2011 Most Recent Mammogram 01/20/2025 Most Recent Bone Density Obstetrics History GPAL:G 0 P 0 0 0 0 Immunizations Vaccine Type Date Status Note Provider Name and Address Organization Details Recorded Time Influenza, split virus, quadrivalent, preservative 016 completed Kaelyn estrada [facility] 01/13/2018 09:28:41 Influenza, split virus, quadrivalent, preservative 017 completed Kaelyn estrada [facility] 01/13/2018 09:28:41 Influenza, split virus, quadrivalent, preservative 019 completed SHE Bejarano [facility] 07/10/2019 13:00:35 Influenza, split virus, quadrivalent, preservative 020 completed SHE Bejarano [facility] 09/20/2020 08:46:31 Influenza, split virus, quadrivalent, PF 020 completed SHE Majano [facility] 02/21/2023 10:12:45 Tdap 019 completed SHE Majano [facility] 02/21/2023 10:12:45 Tdap 016 completed Not Available [facility] 06/13/2019 02:21:45 Influenza, recombinant, trivalent, PF 024 [facility] 15:24:47 Influenza, split virus, quadrivalent, PF 018 completed Not Available [facility] 06/13/2019 02:22:16 pneumococcal polysaccharide PPV23 021 cancelled patient objection Tien Garcia MD [address], [address], [facility] 09/20/2020 09:17:12 Influenza, split virus, quadrivalent, PF 021 [facility] 03/21/2021 14:44:49 Influenza, split virus, quadrivalent, PF 023 completed Tien Garcia MD [address], [address], [facility] 02/21/2023 10:41:54 Past Encounters Encounter ID Performer Location Encounter Start Date Encounter Closed Date Diagnosis/Indication Diagnosis SNOMED-CT Code Diagnosis ICD10 Code Diagnosis IMO Codes Diagnosis Note [id number] Tien Garcia MD Main Office [address] [address] 02/03/2016 09:21:37 02/03/2016 10:35:10 Adult health examination 243351249 Z00.00 Will update immunizati on status, flu advised when available. Will screen based on risk factors and track down recent cervical and breast cancer screening results. Regular dental and ophtho care advised as well as seat belt and sunscreen use. Distracted driving discussed as well as advance directives . Snoring 59750407 R06.83 Screening is warranted based on symptoms and comorbidit ies. Pt has appt with sleep medicine in Apr, will obtain sleep study prior. Administra tion of diphtheria, pertussis, and tetanus vaccine 298619353 Z23 Essential hypertension 02325732 I10 Major depr essive disorder 076917073 F32.9 Wants to try weaning. Advised slow dose reduction and to call with any problems. Body mass index 30+ - obesity 496556789 Z68.39 Advance di rective discussed with patient 238944133 Z71.89 [id number] Tien Garcia MD Main Office [address] [address] [place] [address] 08/02/2016 09:00:18 08/02/2016 09:57:49 Hypercholesterolemia 31350169 E78.2 LDL not at goal. WIll titrate statin to goal LDL <130 as tolerated. Hypertensive disorder 38 476776 I10 Well controlled , continue current regimen. Obstructiv e sleep apnea syndrome 81301048 G47.33 On CPAP and tolerating fairly well. Has sleep medicine f/u on 08/10. Neck pain 87957315 M54.2 Sounds like a strain. Contiue NSAID PRN and call if new symptoms develop or no improvemen t over the next 3-4 weeks. [id number] Tien Garcia MD Main Office [address] [address] [place] [address] 08/31/2016 08:35:53 08/31/2016 09:24:46 Foot pain 44201266 M79.671 M79.672 ? vitamin D deficiency vs OA vs gout vs RA. Will start with labs and assess further depending on results. Pain of mu ltiple joints 46186772 M25.50 Proteinuria 20976048 R80 .9 On ACEI with good BP control. Will follow for now. Hypercholesterolemia 136 33546 E78.2 LDL not at goal. WIll switch to more potent statin and titrate dose to goal LDL <130 as tolerated. Knee pain 09559153 M25.5 62 Will need further eval if persistent /worse and depending on lab results. [id number] Tien Garcia MD Main Office [address] [address] [place] [address] 11/30/2016 09:03:27 11/30/2016 09:43:24 Foot pain 60013175 M79.671 M79.672 Will ask podiatry for mgmt recommenda tions. Hypertensive disorder 38 039368 I10 Well controlled , continue current regimen. Vitamin D deficiency 347 70558 E55.9 WIll start supplement and recheck level in 3-4 months. Proteinuria 74703117 R80 .9 On ACEI with good BP control. Will follow for now. Hypercholesterolemia 136 13497 E78.2 LDL not at goal. WIll switch to more potent statin and titrate dose to goal LDL <130 as tolerated. Obstructiv e sleep apnea syndrome 98149554 G47.33 Pt will contact sleep medicine to discuss options to make treatment more tolerable. [id number] Tien Garcia MD Main Office [address] [address] [place] [address] 01/22/2017 14:55:17 01/22/2017 15:48:51 [id number] Chacha Owens PA-C Main Office [address] [address] [place] [address] 01/23/2017 12:54:23 01/23/2017 13:47:29 Hypertensive disorder 76857043 I10 Uncontroll ed hypertensi on ? symptomati c vs. symptoms related to anxiety. increase metoprolol to 100 mg BID and add HCTZ 12.5 mg. High risk of cardiac disease due to obesity, hyperlipid emia and hypertensi on. Stress test ordered. Follow up in 2 weeks. Pt. was asked to test BP at home daily. Atypical chest pain 1025 93952 R07.89 [id number] Chacha Owens PA-C Main Office [address] [address] [place] [address] 02/06/2017 13:42:22 02/06/2017 14:41:33 Hypertensive disorder 11635728 I10 IMproved BP , but not at goal yet . Increase HCTZ to 25 mg daily Continue Metoprolol and LIsinopril . Test BP daily and return in 6 weeks. [id number] Tien Garcia MD Main Office [address] [address] [place] [address] 07/02/2017 10:25:29 07/02/2017 11:37:04 Adult health examination 287977586 Z00.00 Immunizati on status is utd. Will screen based on risk factors. Cervical and breast cancer screening utd. Regular dental and ophtho care advised as well as seat belt and sunscreen use. Distracted driving discussed as well as advance directives . Body mass index 40+ - severely obese 169576530 E66.01 Z68.41 Epigastric pain 30909978 R10.13 Check u/s to rule out gallbladde r disease. Refer back to GI if normal and symptoms worsen/per sist. Proteinuria 34568244 R80 .9 On ACEI with good BP control. Will follow. Vitamin D deficiency 347 22737 E55.9 WIll start supplement and recheck level in 3-4 months. Hypercholesterolemia 136 04743 E78.2 LDL was not at goal. Need to assess control since starting atorvastat in. WIll titrate dose to goal LDL <130 as tolerated. Hypertensive disorder 38 572425 I10 Well controlled , continue current regimen. Gastroesop hageal reflux disease 680176087 K21.9 Refer back to GI for possible EGD if epigastric pain Chronic constipation 236 306787 K59.09 Possible cause of abd discomfort . OTC fiber supplement and PRN laxative advised. Pityriasis versicolor 56 682335 B36.0 Previously effective. Requesting refill. Exercise-i nduced asthma 55636194 J45.990 Call if symptoms worsen. [id number] Tien Garcia MD Main Office [address] [facility] [address] [facility] [place] [address] 12/23/2017 12:49:25 12/23/2017 13:24:34 Hypertensive disorder 77305180 I10 Better on recheck with plenty of modifiable lifestyle factors available. Will work on getting 30min daily of steady exercise and reducing pasta/rice intake. Continue current regimen for now. Hypercholesterolemia 136 61047 E78.2 LDL was at goal. Will continue current regimen. Proteinuria 48424105 R80 .9 Likely hypertensi on related will continue to monitor. Knee pain 85219002 M25.5 62 Will need further eval if persistent /worse. [id number] Tien Garcia MD Main Office [address] [facility] [address] [facility] [place] [address] 03/18/2018 09:13:54 03/18/2018 10:07:01 Hypertensive disorder 50311401 I10 Well controlled , conitnue current regimen. Needs infl uenza immunization 059273647 Z23 Pain of wrist region 566 31688 M25.532 ? OA vs CTS vs tendinitis . Will image and refer to ortho for further assessment /mgmt. Hypercholesterolemia 136 68637 E78.2 LDL at goal. Will continue current regimen. [id number] Tien Garcia MD Main Office [address] [facility] [address] [place] [address] 06/13/2018 12:45:00 06/13/2018 13:20:28 Acute upper respiratory infection 96480485 J06.9 Supportive /symptomat ic tx advised. Call inb/worse or if second sickening occurs. Cough 89777200 R05 Consider course of prednisone inb/worse or wheezing develops. Cellulitis of external nose 04452529 J34.0 Will cover for cellulitis from respirator y esperanza. Pt will contact place where piercing was done to have it removed. Call if swelling/e ythema worsens. [id number] Tien Garcia MD Main Office [address] [place] [address] 07/18/2018 08:31:53 07/18/2018 09:30:47 Adult health examination 878177072 Z00.00 Immunizati on status is utd. Will screen based on risk factors. Breast cancer screening utd, cervical cancer screening not indicated. Regular dental and ophtho care advised as well as seat belt and sunscreen use. Distracted driving discussed as well as advance directives . Screening for malignant neoplasm of breast 204331572 Z12.39 Screening for malignant neoplasm of cervix 872655812 Z12.4 Body mass index 40+ - severely obese 145134146 Z68.41 Vitamin D deficiency 347 00660 E55.9 Normal level in November on this dose. Will continue. Major depr ession in remission 48182096 F32.5 Obstructiv e sleep apnea syndrome 66801116 G47.33 Pt will contact sleep medicine to discuss options to make treatment more tolerable. Hypercholesterolemia 136 19190 E78.2 LDL at goal. Will continue current regimen. Hypertensive disorder 38 628138 I10 Well controlled , conitnue current regimen. Gastroesop hageal reflux disease 743217676 K21.9 Refer back to GI for possible EGD if epigastric pain Macromastia 685879690 N6 2 Pt inquiring re breast reduction surgery. Has had persistent back pain but no other reported complicati ons at this time. Proteinuria 81040863 R80 .9 Likely hypertensi on related will continue to monitor, on max dose ACEI. Morbid obesity 877133541 E66.01 [id number] Diana glass MD Main Office [address] [address] [place] [address] 08/25/2018 10:38:43 08/25/2018 11:03:19 Insect bite, nonvenomous, of upper arm 048433975 S40.862A Advised to apply warm compress and take antihistam nina as discussed. Call office if area gets bigger or any fever, chills. [id number] Lito Paris MD Main Office [address] [address] [place] [address] 09/09/2018 10:41:27 09/09/2018 11:32:09 Allergic urticaria 58631293 L50.0 [id number] Tien Garcia MD Main Office [address] [address] [place] [address] 10/27/2018 09:33:20 10/27/2018 10:34:19 Dizziness on standing up 346967230 R42 Likely realted to some mild orthostasi s, sx are rare. Pt advised to get up slowly from sitting position, encourage hydration. If she had persistent dizziness she should followup. She is able to work without limitation s. Hypertensive disorder 38 134534 I10 BP controlled , no orthostasi s with position change today. EKG with occasional premature beat, has long QT (no new meds), will get old ekg to compare. [id number] Gabriel Tafoya MD Main Office [address] [address] [place] [address] 01/12/2019 08:46:50 01/12/2019 09:27:23 Sprain of knee 25623884 S83.92XA Overuse injury of the L> knee with prepatella r tendonitis . Pt. is advised to lower activity, stabilize with elastic brace , ice 2-3 times daily 15-20 min and take Aleve 220 mg 12- BID with food. F/u as needed. [id number] Tien Garcia MD Main Office [address] [address] [place] [address] 01/22/2019 12:41:20 01/22/2019 13:27:43 Major depression in remission 98628425 F32.5 Well controlled and regimen tolerated. Will continue current dosing. Hypertensive disorder 38 828665 I10 Well controlled , continue current regimen. Prolonged QT interval 11 I45.81 Seen by cardiology . Not felt to be the cause of her dizziness but has stress test booked Pain in left knee 600738 0992 24969 M25.562 ? meniscus vs patellar disease vs OA. If xr negative will try PT and consult PMR. [id number] Tien Garcia MD Main Office [address] [facility] [address] [place] [address] 03/06/2019 09:25:28 03/06/2019 09:55:01 Knee pain 56145810 M25.562 Working with PT and PMR. Hypertensive disorder 38 563557 I10 Well controlled , continue current regimen. Dizziness 710120387 R42 Will decrease diuretic to see if that is contributi ng to orthostati c symptoms. Prolonged QT interval 11 I45.81 Seen by cardiology . Not felt to be the cause of her dizziness. Will monitor and avoid rx's that can worsen QT interval. [id number] Tien Garcia MD Main Office [address] [facility] [address] [place] [place] [address] 07/10/2019 12:40:18 07/10/2019 13:25:23 Pain in right lower limb 730493030 M79.604 Possible hip pathology/ bursitis vs radiculopa thy. The later is not totally consistent with reported symptoms and exam findings. If Hip Xray is abnl will redirect referral to ortho. Try PT and refer to PMR to help further elucidate etiology. [id number] Tien Garcia MD Main Office [address] [facility] [address] [place] [address] 07/20/2019 10:10:22 07/20/2019 11:14:22 Adult health examination 228983789 Z00.00 Immunizati on status is utd. Screening utd based on risk factors. Breast cancer screening utd, cervical cancer screening not indicated. Regular dental and ophtho care advised as well as seat belt and sunscreen use. Distracted driving discussed as well as advance directives . Osteoarthr itis of right hip joint 9467613801 86539 M16.11 Has appt with PMR. Screening for malignant neoplasm of breast 070650122 Z12.39 Screening for malignant neoplasm of cervix 286337790 Z12.4 PAP not indicated in post hysterecto my pt Body mass index 40+ - severely obese 164498613 Z68.41 Major depr ession in remission 80677502 F32.5 Well controlled and regimen tolerated. Will continue current dosing. Genital he rpes simplex 54647967 A60.9 On chronic suppressiv e therapy without issue. Chronic constipation 236 384587 K59.09 Stool softner not helping. Will try senna. Gastroesop hageal reflux disease 934424758 K21.9 Well controlled without warning signs. Continue PPI. Hypercholesterolemia 136 37982 E78.2 LDL at goal. Will continue current regimen. Hypertensive disorder 38 151016 I10 Well controlled , continue current regimen. Obstructiv e sleep apnea syndrome 05575694 G47.33 Non compliant with CPAP. Pt will contact sleep medicine to discuss options to make treatment more tolerable. Understand s potential consequenc es to untreated SKYE. Morbid obesity 230427943 E66.01 [id number] Tien Garcia MD Main Office [address] [facility] [address] [place] [address] 09/20/2020 08:34:30 09/20/2020 09:25:07 Adult health examination 318142441 Z00.00 Immunizati on status is utd. Screening utd based on risk factors. Breast cancer screening utd, cervical cancer screening not indicated. Regular dental and ophtho care advised as well as seat belt and sunscreen use. Distracted driving discussed as well as advance directives . Hypercholesterolemia 136 21160 E78.2 LDL at goal. Will continue current regimen. Major depr ession in remission 43194074 F32.5 Well controlled and regimen tolerated. Will continue current dosing. Screening for malignant neoplasm of breast 330628906 Z12.39 Screening for malignant neoplasm of cervix 452779593 Z12.4 PAP not indicated in post hysterecto my pt Dysuria 92541454 R30.9 More of a urine odor issue. If urine testing is normal will advise hydration. If symptoms worsen consider urology referral. Morbid obesity 884124010 E66.01 Administra tion of pneumococcal vaccine 88768065 Z23 Genital he rpes simplex 68809292 A60.9 On chronic suppressiv e therapy without issue. Gastroesop hageal reflux disease 920734861 K21.9 Well controlled without warning signs. Continue PPI. Hypertensive disorder 38 747093 I10 Usually well controlled did not take meds today. Continue current regimen. Obstructiv e sleep apnea syndrome 32131312 G47.33 Non compliant with CPAP. Pt will contact sleep medicine to discuss options to make treatment more tolerable. Understand s potential consequenc es to untreated SKYE. Body mass index 40+ - severely obese 286611271 Z68.41 Generalize d anxiety disorder 78747521 F41.1 [place] to [place] today. Has flight anxiety. No flags on INFORMATION CODER report. [id number] Lito Paris MD Main Office [address] [facility] [address] [place] [address] 12/09/2020 08:34:21 12/09/2020 09:08:33 Bilateral carpal tunnel syndrome 6265374711 8058918 G56.03 she has been seen and diagnosed in the past. needs a brace for her right hand. she duggan snot wish to see hand surgery or have injection at this time. Pain of ri ght shoulder joint 1074079176 5949661 M25.511 palpable lump ? lipoma vs inclusion cyst. Will get US and then refer luna valverde. Abdominal pain 53080485 R10.9 abd pain with sift stools x 3 days. recommend she cut back senna to only once daily for now and start a probiotic daily x 30 days. Will check bloodwork, if elevated BWC or other abnormalit y may need imaging. [id number] Tien Garcia MD Main Office [address] [facility] [address] [place] [address] 03/21/2021 08:30:16 03/21/2021 09:11:54 Hypertensive disorder 00400706 I10 Well controlled continue current regimen. Hypercholesterolemia 136 34678 E78.2 LDL at goal. Will continue current regimen. Needs infl uenza immunization 954623118 Z23 Osteoarthr itis of wrist 919228085 M19.039 Suspect this and possibly CTS as well. Declines hand surgery referral. Impaired f asting glycemia 685694517 R73.01 Will monitor. 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 Albuminuria 218598937 R8 0.9 Has urology appt. Will monitor this issue. Adequate hydration and limiting NSAID use advised. Vitamin D deficiency 347 92660 E55.9 Will increase vitamin d supplement for Winter months. Major depr ession in remission 47512084 F32.5 Having some difficulty coping with recent relationsh ip stressors. Requesting therapy referral. Advised to call if symptoms are becoming more limiting. Counseling 022036488 Z71 .9 Referral for counseling with Ned / PRAFUL Arboleda. Please provide patient with contact info to schedule their appointmen tAbena Davidson#[phone] email: [email or web address] [id number] Tien Garcia MD Main Office [address] [address] 07/04/2021 09:02:56 07/04/2021 09:46:11 Hypertensive disorder 51342522 I10 Well controlled continue current regimen. Hypercholesterolemia 136 52664 E78.2 LDL at goal. Will continue current regimen. Going for labs this AM. Gastroesop hageal reflux disease 219582922 K21.9 Well controlled without warning signs. Continue PPI. Situationa l panic attack 151798270 F41.0 Impaired f asting glycemia 745557923 R73.01 Will monitor. [id number] Tien Garcia MD Main Office [address] [address] 09/26/2021 08:34:42 09/26/2021 09:36:11 Adult health examination 454056819 Z00.00 Immunizati on status is utd. Screening utd based on risk factors. Breast cancer screening utd, cervical cancer screening not indicated. Regular dental and ophtho care advised as well as seat belt and sunscreen use. Distracted driving discussed as well as advance directives . Gastroesop hageal reflux disease 846420470 K21.9 Well controlled without warning signs. Continue PPI. Hypercholesterolemia 136 20264 E78.2 LDL at goal. Will continue current regimen. Going for labs this AM. Hypertensive disorder 38 677662 I10 Well controlled continue current regimen. Impaired f asting glycemia 839487189 R73.01 Will monitor. Screening for malignant neoplasm of cervix 163485822 Z12.4 PAP not indicated in post hysterecto my pt Screening for malignant neoplasm of breast 534845660 Z12.39 Screening for malignant neoplasm of colon 026095870 Z12.11 Pt low risk and asymptomat ic. Screening deferred. Alkaline p hosphatase above reference range 184709604 R74.8 Prolonged QT interval 11 8255794 I45.81 Seen by cardiology . Not felt to be the cause of her dizziness. Will monitor and avoid rx's that can worsen QT interval. Non-alcoho lic fatty liver 604039214 K76.0 Vitamin D deficiency 347 51102 E55.9 Will increase vitamin d supplement for Winter months. Body mass index 30+ - obesity 730229446 E66.01 Z68.39 [id number] Tien Garcia MD Main Office [address] [facility] [address] [facility] [place] [address] 04/26/2022 11:37:31 04/26/2022 12:19:49 Hypertensive disorder 13829818 I10 Fair control, untreated SKYE may be a contributi ng factor. Will continue current regimen for now and monitor. Gastroesop hageal reflux disease 913087182 K21.9 Well controlled without warning signs. Continue PPI. Pityriasis versicolor 56 354963 B36.0 Previously effective. Requesting refill. Eczema 62273335 L30.9 Possible Ni allergy. callinb/wo rse with topical steroid. Digital mu cous cyst of right hand 7424029140 283476 M67.441 Affording some discomfort , so will ask ortho for eval. Obstructiv e sleep apnea syndrome 86661887 G47.33 Non compliant with CPAP. Pt will contact sleep medicine to discuss options to make treatment more tolerable. Understand s potential consequenc es to untreated SKYE. [id number] Tien Garcia MD Telehealt h [address] [facility] [address] [place] [address] 06/19/2022 08:21:26 06/19/2022 11:18:09 COVID-19 213851473 U07.1 cont otc meds (prn tyl, robitussin ) as dir, cont self-isola tion, cont push fluid intake, rest, consider extra vit D for a few days to help boost immune system advised pt only to go to ER if significan t sob where may need to be admitted, o/w avoid going to hospital if at all possible advised pt to hold statin x 1 week Counseling 359884617 Z71 .9 Health advice, education or counseling done for COVID 19 [id number] Tien Garcia MD Main Office [address] [facility] [address] [facility] [place] [address] 07/26/2022 09:29:09 07/26/2022 10:39:13 Pain in right thumb 0125489017 783755 M79.644 Possible OA vs tendonitis . Will image and manage as OA given her history and risk factors. If xray unremarkab le and symptoms persist will manage as Dequarvain s. If persistent /worse will refer to ortho. Constipation 66626991 K5 9.00 Screen for secondary causes, add fiber and change laxative regimen. Hypertensive disorder 38 973169 I10 Not well controlled but no meds today. Will reassess at f/u, pt advised to call if BP >140/90 at home. [id number] Tien Garcia MD Main Office [address] [facility] [address] [place] [address] 11/22/2022 14:44:10 11/22/2022 15:41:46 Adult health examination 788971159 Z00.00 Immunizati on status is utd. Screening utd based on risk factors. Breast cancer screening utd, cervical cancer screening not indicated. Regular dental and ophtho care advised as well as seat belt and sunscreen use. Distracted driving discussed as well as advance directives . Body mass index 40+ - severely obese 752322811 E66.01 Z68.41 Constipation 75198647 K5 9.00 Needs GI eval for this and colon cancer. On wait list at [facility]. Advised to call if not contacted in the next month. Hemorrhoids 14652667 K64 .9 Hypercholesterolemia 136 09261 E78.2 LDL at goal. Will continue current regimen. Going for labs this AM. Hypertensive disorder 38 173239 I10 Not well controlled but no meds today. Will reassess at f/u, pt advised to call if BP >140/90 at home. Given proteinuri a will ask renal to help. Impaired f asting glycemia 954417032 R73.01 Will monitor/re assess Non-alcoho lic fatty liver 864099434 K76.0 Obstructiv e sleep apnea syndrome 10058540 G47.33 Non compliant with CPAP. Pt will contact sleep medicine to discuss options to make treatment more tolerable. Understand s potential consequenc es to untreated SKYE. Vitamin D deficiency 347 23251 E55.9 Will increase vitamin d supplement for Winter months. Pain of ri ght knee joint 1132368145 25964 M25.561 Major depr ession in remission 80594427 F32.5 Having some difficulty coping with recent relationsh ip stressors. Requesting therapy referral. Advised to call if symptoms are becoming more limiting. Administra tion of pneumococcal vaccine 88626258 Z23 Alkaline p hosphatase above reference range 729473381 R74.8 Albuminuria 038011194 R8 0.9 Has urology appt. Will monitor this issue. Adequate hydration and limiting NSAID use advised. Prolonged QT interval 11 4858135 I45.81 Seen by cardiology . Not felt to be the cause of her dizziness. Will monitor and avoid rx's that can worsen QT interval. [id number] Tien Garcia MD Main Office [address] [facility] [address] [place] [address] 02/21/2023 10:06:48 02/21/2023 10:42:52 Needs influenza immunization 579966121 Z23 Chronic constipation 236 703771 K59.09 Currently well controlled , continue current regimen. Still due for colonoscop y, advised to call [facility] to determine where she is on their wait list. Hypercholesterolemia 136 58308 E78.2 Not at goal, ? complinace . Reassess before next appt. Essential hypertension 57496741 I10 Well controlled , continue current regimen. Hypokalemia 66929549 E87 .6 Will increase dietary intake and monitor. Likely relate to HCTZ. Vitamin D deficiency 347 35618 E55.9 Will increase vitamin d (extra 200iu QOD) supplement for Winter months. Neck pain 34574091 M54.2 Sounds like a strain. See if PRN muscle relaxant helps. Obstructiv e sleep apnea syndrome 81049858 G47.33 Non compliant with CPAP. Pt is following with sleep medicine. Understand s potential consequenc es to untreated SKYE. [id number] RAUL REMY MD Main Office [address] [place] [address] 03/14/2023 11:04:45 03/14/2023 11:31:57 Low back pain 354654035 M54.50 - acute lower back pain- ordered x-ray for further evaluation of the spine- pt has meloxicam and cyclobenza shwetha at home, pt was told to start medication s and take daily for 14 days> meloxicam 15mg in the AM with food, pt advised no to take any other NSAID> cyclobenza shwetha 10mg in the PM before bed, pt advised not to drive or operate heavy machinery while taking the medication - pt advise to ice area (can interchang e with heat)- next steps if no improvemen t: physical therapy, referral- RTC precaution s given [id number] Lito Paris MD Main Office [address] [place] [address] 11/21/2023 09:50:12 11/21/2023 10:21:59 Pruritus of vagina 32396841 L29.3 x4-5 weeks intermitte ntly-sympt oms of vaginal itching mostly in the mornings; has noticed vaginal dryness-de nies of any abnormal vaginal discharge, bleeding, or smell-no known trauma or scented products-w ill check vaginitis panel, possible symptom of starla-menop ause-pt [employer] 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 Chaves retired. Contact info provided. Adult heal th examination 588375629 Z00.00 COVID/PCV2 0 advised via local pharmacy as well as flu in the Fall. Screening utd based on risk factors. Breast cancer screening utd, cervical cancer screening utd. Regular dental and ophtho care advised as well as seat belt and sunscreen use. Distracted driving discussed as well as advance directives . Constipation 28022141 K5 9.00 Needs GI eval for this and colon cancer. On wait list at [facility]. Advised to call if not contacted in the next month. Hemorrhoids 62540418 K64 .9 Hypercholesterolemia 136 46248 E78.2 LDL at goal. Will continue current regimen. Going for labs this AM. Hypertensive disorder 38 820243 I10 Not well controlled but no meds today. Will reassess at f/u, pt advised to call if BP >140/90 at home. Given proteinuri a will ask renal to help. Impaired f asting glycemia 006727189 R73.01 Will monitor/re assess Non-alcoho lic fatty liver 373169490 K76.0 Obstructiv e sleep apnea syndrome 70236531 G47.33 Non compliant with CPAP. Pt will contact sleep medicine to discuss options to make treatment more tolerable. Understand s potential consequenc es to untreated SKYE. Vitamin D deficiency 347 23630 E55.9 Will increase vitamin d supplement for Winter months. Major depr ession in remission 87711528 F32.5 Having some difficulty coping with recent relationsh ip stressors. Requesting therapy referral. Advised to call if symptoms are becoming more limiting. Alkaline p hosphatase above reference range 297045280 R74.8 Minimal elevation last year. Will reassess. Albuminuria 740751562 R8 0.9 Has urology appt. Will monitor this issue. Adequate hydration and limiting NSAID use advised. Prolonged QT interval 11 I45.81 Seen by cardiology . Not felt to be the cause of her dizziness. Will monitor and avoid rx's that can worsen QT interval. Hot sweats 602824326 R61 Difficult to ascertain following hysterecto my. WIll check labs. Migraine 74347325 G43.90 9 Eye exam encouraged as well as CPAP compliance . Uterus absent 274030827 Z90.710 Still needs PAP and will find a new gynecologi st. Body mass index 30+ - obesity 308566602 E66.01 Z68.39 [id number] Tien Garcia MD Main Office [address] [facility] [address] [place] [address] [place], [place] [address] 03/13/2024 08:59:48 03/13/2024 09:41:05 Migraine 84651718 G43.909 Improved. Eye exam encouraged as well as CPAP compliance . Vitamin D deficiency 347 70768 E55.9 Will increase vitamin d supplement for Winter months. Exercise-i nduced asthma 99234973 J45.990 Call if symptoms worsen. Irritable bowel syndrome characterized by constipation 619018001 K58.1 Better with fiber and miralax. Colonoscop y being scheduled. Obstructiv e sleep apnea syndrome 53398348 G47.33 Non compliant with CPAP. Pt will contact sleep medicine to discuss options to make treatment more tolerable. Understand s potential consequenc es to untreated SKYE. Morbid obesity 186231472 E66.01 Nutrition referral provided, will assess progress in 3-4 months. Prolonged QT interval 11 I45.81 Seen by cardiology previously . Not felt to be the cause of her dizziness. Will monitor and avoid rx's that can worsen QT interval. Pt counseled on concerning medication s and to advise any providers of this diagnosis. Lipoma of upper arm 1889 94323 D17.20 Reassuranc e provided will monitor clinically . If enlarging or changing would refer for imaging to confirm. [id number] Tien Garcia MD Main Office [address] [facility] [place] [address] 09/03/2024 15:07:40 09/03/2024 15:57:18 Migraine 27865362 G43.909 Improved. Eye exam encouraged as well as CPAP compliance . Palpitations 09851396 R0 0.2 Based on risk factors (obesity/O SA/prolong ed QT/HTN) and frequency further testing is warranted. Prolonged QT interval 11 I45.81 Prolonged QT not present on ECG today but now with new RBBB. Right bund le branch block 40949776 I45.10 Given new finding will refer for additional testing. Start with ECHO. If abnl or symptoms start to correlate to exertion would need follow up stress testing. Obstructiv e sleep apnea syndrome 98647723 G47.33 Non compliant with CPAP. Pt will contact sleep medicine to discuss options to make treatment more tolerable. Understand s potential consequenc es to untreated SKYE. [id number] Allegra Oquendo MD Main Office [address] [facility] [place] [phone] 09/28/2024 09:34:35 09/28/2024 12:54:59 [id number] Tien Garcia MD Main Office [address] [facility] [address] [place] [address] 10/06/2024 13:36:28 10/06/2024 13:37:49 [id number] Tien Garcia MD Main Office [address] [facility] [address] [place] [address] 12/11/2024 09:30:59 12/11/2024 10:43:06 Adult health examination 108983506 Z00.00 Shingrix/C OVID/PCV20 advised via local pharmacy as well as flu in the Fall. Screening utd based on risk factors. Breast cancer screening utd, cervical cancer screening utd. Regular dental and ophtho care advised as well as seat belt and sunscreen use. Distracted driving discussed as well as advance directives . Pityriasis versicolor 56 084533 B36.0 Previously effective. Requesting refill. Vitamin D deficiency 347 55408 E55.9 Will reassess with dose increase. Constipation 16938667 K5 9.00 Colonoscop y done in 2023. See if Mg supplement helps Hypercholesterolemia 136 11586 E78.2 LDL at goal. Will continue current regimen. Going for labs. Hypertensive disorder 38 371140 I10 Well controlled continue current regimen. Pt advised to call if BP >140/90 at home. Given proteinuri a will ask renal to help. Impaired f asting glycemia 945299648 R73.01 Will monitor/re assess Non-alcoho lic fatty liver 844075569 K76.0 Obstructiv e sleep apnea syndrome 97056213 G47.33 Non compliant with CPAP. Pt will contact sleep medicine to discuss options to make treatment more tolerable. Understand s potential consequenc es to untreated SKYE. 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 Requesting therapy referral. Advised to call if symptoms are becoming more limiting. Alkaline p hosphatase above reference range 308786563 R74.8 Minimal elevation last year. Will reassess. Albuminuria 332846411 R8 0.9 Will monitor this issue. Adequate hydration and limiting NSAID use advised. Prolonged QT interval 11 6025068 I45.81 Seen by cardiology in the past. Not present on recent ECG. Will monitor and avoid rx's that can worsen QT interval. Migraine 13068492 G43.90 9 Eye exam encouraged as well as CPAP compliance . Uterus absent 655370492 Z90.710 Still needs PAP and will find a new gynecologi st. Hemorrhoids 78299372 K64 .9 Screening for malignant neoplasm of breast 170104316 Z12.39 Screening for malignant neoplasm of cervix 060781452 Z12.4 Has appointmen t with [facility] Body mass index 40+ - severely obese 945828074 Z68.41 [id number] Interested in GLP1 therapy, and insurance may cover. Pt advised to inquire about coverage and in network nutritiona l counsleing options. Impacted c erumen in left ear 6015558824 877535 H61.22 0772294 Lesion of scalp 59242439 91 00 L98.9 641039 Possible seborrhea but if persistent /worse will make appt with derm. Administra tion of pneumococcal vaccine 89500017 Z23 [id number] RAUL REMY MD Main Office [address] [facility] [place] [address] 12/28/2024 15:00:46 12/28/2024 15:21:52 Impacted cerumen in right ear 6947994230 030882 H61.21 0246307 [id number] Lito Paris MD Main Office [address] [facility] [place] [address] 01/06/2025 13:31:03 01/06/2025 13:56:46 Neck pain 27949587 M54.2 [id number] reviewed hospital documentat ion-was evaluated at [facility] for right sided neck pain>was given toradol injection and lidocaine patches-si nce discharge, continues to endorse symptoms-d enies of any neck trauma, vision changes, numbness, weakness, chest pain, difficulty breathing- no paraspinal tenderness -will refer to PT and provide medrol pack Migraine 90869057 G43.90 9 refill provided [id number] Tien Garcia MD Main Office [address] [facility] [place] [address] 04/09/2025 10:02:38 04/09/2025 11:01:43 Prediabetes 985745567 R73.03 Will monitor/re assess Severe obesity 297633300 1 9104 E66.01 [id number] Interested in GLP1 therapy, and insurance may cover. Pt advised to inquire about coverage and in network nutritiona l counseling options. Hypertensive disorder 38 931678 I10 Well controlled continue current regimen. Pt advised to call if BP >140/90 at home. Given proteinuri a will ask renal to help. Hypercholesterolemia 136 02626 E78.2 LDL at goal. Will continue current regimen. Going for labs. Chronic constipation 236 783369 K59.09 Currently well controlled , continue current regimen. Still due for colonoscop y, advised to call [facility] to determine where she is on their wait list. Seborrheic dermatitis of scalp 404214081 L21.9 [id number] Health Concerns Section Related Observation LastModified by Organization Detai ls LastModified Time None Recorded Concern Status LastModified by Organization Details LastModified Time None Recorded Advance Directives Directive Y: HCP/ Sister-Niki, Mom-E ingrid Payers Insurance Date Sequence Insurance Name Policy Number Policy Bond Covered Member ID Bond Member ID Guarantor Name 04/09/2025 1 [facility] [id number] [facility] [place] [id number] [facility] Notes Date Note Type Note Provider Name and Address Organization Details Recorded Time 5 text/html Generic HPI TemplateReported by PatientHere for a physical. Feels well. Seeing dentist and ophtho regularly. Tien Garcia MD [address], [address], [facility] 12/11/2024 13:34:38 5 text/html ROS as noted in the HPI Joyce is a 49yr old F who presents for a hospital f/u. Was evaluated at [facility] for neck pain. Endorsing neck pain x5 days. Has tried flexeril, tylenol, lidocaine patch, and Excedrin. Was educated on conservative measurements in the ER. Denies of any neuropathy. Denies any neck trauma, vision changes, numbness, weakness, chest pain, difficulty breathing. GILMAR BUCK [address] [place], [address], [facility] 01/08/2025 13:09:27 5 text/html ConstipationReported by PatientHPIFor quality, patient reportsimproving. For severity, patient reportsmild. For duration, patient reportspresent 5 or more years. For associated symptoms, patient reportsno abdominal pain,no mucus in stool, andno black or tarry stools.Diagnosed with IBS-c. Did not respond to Senna when she followed up with GI so she was transitioned to Miralax. Colonoscopy done since last visit and showed 2 polyps HyperlipidemiaReported by PatientHPIFor type of hyperlipidemia, patient reportshypercholesterolem iaandhypertriglyceridemia . For duration, patient reportsnew onset. For control, patient reportsnot at goalbut reportsusually well controlled. For compliance, patient reportsnoncompliant with dietanddoes not exercisebut reportscompliant. For risk factors, patient reportshypertensionandobe sity. For current therapy, patient reportscurrently taking: (atorvastatin),last cholesterol level: (181),last ldl level: (127),last triglyceride level: (178), andlast hdl level: (40). For complications, patient reportsno coronary artery disease,no peripheral artery disease, andno cardiovascular disease. Hypertension F/UReported by PatientHPIFor lifestyle, patient reportsnot exercising regularlybut reportslimiting/avoiding salt. For associated symptoms, patient reportsno dizziness,no lightheadedness,no chest pain,no shortness of breath,no palpitations, andno edema. For medications, patient reportstaking medications as directedandno side effects from medication. HeadacheReported by PatientHPIFor associated symptoms, patient reportsphotophobia. For quality, patient reportsnot the worst headache everandsimilar to previous headaches. For severity, patient reportsmild. For onset/timing, patient reportsbetter. For context, patient reportsnot related to trauma.Migraines are well controlled.ROS as noted in the HPI Not Available Not Available Not Available OBGyn Episode No OBEpisode recorded.
--- OUTSIDE RECORDS SUMMARY | 2025-04-28 12:36 | XMS_ITS | Clinical Summary ---
Author Organization [facility] [address] [facility] Address [address] [place] [address] Phone Care Team Providers Care Enterprise Applications Manager Name Role Phone Tien Gomes MD Primary Care Provider [phone] Allergies Active Allergy Reactions Criticality Noted Date Comments Sulfamethoxazole-Trimetho prim GI intolerance 05/05/2024 Other Reaction(s): n/v/f Sumatriptan 05/05/2024 Medications valACYclovir (VALTREX) 500 mg tablet Take 1 tablet (500 mg total) by mouth 1 (one) time each day. as directed 02/13/2024 Active senna 8.6 mg tablet Take 2 tablets (17.2 mg total) by mouth 1 (one) time each day. 01/11/2024 Active omeprazole (PriLOSEC) [address] capsule Take 1 capsule (20 mg total) by mouth 1 (one) time each day. as directed 04/29/2024 Active metoprolol tartrate (LOPRESSOR) 100 mg tablet Take 1 tablet (100 mg total) by mouth 2 (two) times a day. 03/11/2024 Active naproxen (NAPROSYN) 500 mg tablet Take 1 tablet (500 mg total) by mouth 2 (two) times a day if needed. 12/10/2023 Active lisinopril (PRINIVIL,ZESTR IL) 40 mg tablet Take 1 tablet (40 mg total) by mouth 1 (one) time each day. Active hydroCHLOROthia zide 12.5 mg tablet Take 1 tablet (12.5 mg total) by mouth 1 (one) time each day. 04/14/2024 Active cholecalciferol (VITAMIN D-3) 50 mcg (2,000 unit) capsule Take 1 capsule (2,000 Units total) by mouth 1 (one) time each day. 07/02/2023 Active atorvastatin (LIPITOR) 20 mg tablet Take 1 tablet (20 mg total) by mouth 1 (one) time each day. Active aspirin 81 mg EC tablet Take 1 tablet (81 mg total) by mouth 1 (one) time each day. Active albuterol HFA (PROAIR HFA ; PROVENTIL HFA ; VENTOLIN HFA) 90 mcg/actuation inhaler if needed. 03/13/2024 Active cyclobenzaprine (FLEXERIL) 10 mg tablet Take 1 tablet (10 mg total) by mouth 3 (three) times a day if needed for muscle spasms for up to 7 days. 20 tablet 01/04/2025 Active Active Problems Problem Noted Date Diagnosed Date Chronic constipation 05/05/2024 Hyperlipidemia 05/05/2024 Endometriosis 05/05/2024 Acquired absence of both cervix and uterus 09/20 Uterine leiomyoma 08/28/2016 Gastroesophageal reflux disease 02/03/2016 Hypertensive disorder 02/03/2016 Vitamin D deficiency 09/24/2013 Surgical History Surgery Date Site/Laterality Comments COLONOSCOPY 04/21/2024 5-year recall TA polyp HYSTERECTOMY Social History Tobacco Use Types Packs/Day Years Used Date Smoking Tobacco: Never Smokeless Tobacco: Never Alcohol Use Standard Drinks/Week Comments Not Currently 0 (1 standard drink = 0.6 oz pur e alcohol) Comments No Sex and Gender Information Value Date Recorded Sex Assigned at Not on file Legal Sex Female 2:20 AM EST Gender Identity Not on file Sexual Orientation Not on file Obstetrics History Last Filed Vital Signs Vital Sign Reading Time Taken Comments Blood Pressure 145/90 01/04/2025 3:58 AM EDT Pulse 77 01/04/2025 3:58 AM EDT Temperature 36.9 C (98.4 F) 01/04/2025 3:58 AM EDT Respiratory Rate 20 01/04/2025 3:58 AM EDT Oxygen Saturation 98% 01/04/2025 3:58 AM EDT Inhaled Oxygen Concentration - - Weight 127 kg (280 lb) 01/04/2025 1:59 AM EDT Height 180.3 cm (5' 11 ) 01/04/2025 1:59 AM EDT Body Mass Index 39.05 01/04/2025 1:59 AM EDT Plan of Treatment Health Maintenance Due Date Last Done Comments Hepatitis A Vaccines (1 of 2 - Risk 2-dose series) 1993 Hepatitis B Vaccines (1 of 3 - 19+ 3-dose series) 1993 Pneumococcal Vaccine: 50+ Years (1 of 2 - PCV) 1993 Cervical Cancer Screening: Pap Smear 1995 Cholesterol Screening (Lipid Panel) 04/29/2022 HIV Screening 04/29/2022 Hepatitis C Screening 04/29/2022 Social Influencers of Health Screening 04/29/2022 Hypertension/CHF/CAD Annual BMP Blood Test 05/06/2024 RSV Immunization Adult Patients (1 - Risk 50-74 years 1-dose series) 2024 Zoster Vaccines (1 of 2) 2024 Depression Screening 05/27/2024 Breast Cancer Screening 12/17/2024 12/17/2022 COVID-19 Vaccine ( - season) 2025 Influenza Vaccine (#1) 2025 , 02/21/2023, 03/21/2021, Additional history exists DTaP,Tdap,and Td Vaccines (4 - Td or Tdap) 10/17/2028 10/17/2018, 02/03/2016, 10/15/2013 Colorectal Cancer Screening: Colonoscopy 04/21/2034 04/21/2024 HIB Vaccines Aged Out No longer eligi ble based on patient's age to complete this topic HPV Vaccines Aged Out No longer eligi ble based on patient's age to complete this topic IPV Vaccines Aged Out No longer eligi ble based on patient's age to complete this topic MMR Vaccines Aged Out No longer eligi ble based on patient's age to complete this topic Meningococcal ACWY Vaccine Aged Out N o longer eligible based on patient's age to complete this topic Meningococcal B Vaccine Aged Out No l onger eligible based on patient's age to complete this topic RSV Immunization Patients Under 20 months Aged Out No longer eligible based on patient's age to complete this topic Varicella Vaccines Aged Out No longer eligible based on patient's age to complete this topic Procedures Procedure Name Priority Date/Time Associated Diagnosis Comments EXTERNAL COLONOSCOPY REPORT Routine 04/21/2024 4:36 PM EST from Last 3 Months or Most Recently Relevant to Health Maintenance Results * External Colonoscopy Report (04/21/2024 4:36 PM EST) Anatomical Region Laterality Modality Endoscopy us Historical Provider GI~PROCEDURE ORDERABLES F inal Result from Last 3 Months or Most Recently Relevant to Health Maintenance Insurance [facility] Care Teams Enterprise Applications Manager Relationship Specialty Start Date End Date Tien Gomes MD [address] PCP - General Internal Medicine 03/31/24
--- OUTSIDE RECORDS SUMMARY | 2025-04-28 12:37 | XMS_ITS | Patient Health Record ---
Author Organization [facility] Address [address] [place] [address] Care Team Providers Care Corporate Associate Attorney Name Role Phone Ceasar Nicole Unavailable [phone] Reason For Referral No Information Plan Of Treatment No Information
== END 2025-04-28 11:28 | disposition home or self-care (01) ==
PROVIDERS: PCP Internal Medicine; Visit Provider Obstetrics & Gynecology
DX: Z01.419 Encounter for gynecological examination (general) (routine) without abnormal findings (principal)
CPT/HCPCS: 99386; 99459

== ENCOUNTER 2025-04-28 10:48 | Outpatient (REF) | payer BC, SELFPAY ==
--- OUTSIDE RECORDS SUMMARY | 2025-04-28 13:57 | XMS_ITS | Data Portability ---
Author Organization [facility], Main Office Address [address] [facility] [address] [place] [id number] Care Team Providers Care Yeast Pumper Name Role Phone TIEN GARCIA Primary Care Provider [phone] ANDRES HIGGINS Political Analyst [facility] Sleep Medicine [phone] LAUREN ENNIS Mechanical Manager MARK WOMACK Phys. Med. & Rehab ORTHOPRIDDHI HERNANDEZ General Surgeon [phone] DC PORTILLO Urologist [facility] Fire Management Specialist [facility] Dinkey Engine Firer RADHA LEONARDO Ladle Watcher Assessment Encounter Date Assessment Date Assessment LastModified [...] Go To The Location Of Their Choice, [address] 12/12/2024 08:06:49 magnesiu m, serum or plasma 2024 025 [facility]IN[facility], [address], [address], [place], [address], 12/12/2024 08:06:51 LDL, direct, serum 2024 025 AMINTA [facility] (Centralized Electronic Ordering - All Locations), Patient Can Go To The Location Of Their Choice, [address] 12/12/2024 08:06:50 CMP, serum or plasma 2024 025 [facility], [address], [address], [place], [address], 12/12/2024 08:06:48 HbA1c (hemoglo bin A1c), blood 2024 025 [facility], [address], [address], [place], [address], 12/12/2024 08:06:50 vitamin D, 25-hydro xy, total, serum 2024 025 [facility], [address], [address], [place], [address], 12/12/2024 08:06:51 Referral physical therapis t referral - right sided neck pain. localize d. 2024 025 [email or web address] [facility], [address] [facility] , [address], [place], [address], 01/06/2025 13:56:46 dermatol ogist referral - for left scalp lesion 2024 025 alissa [facility], [address], [address], [place], [address], 12/11/2024 10:43:06 gynecolo gist referral - Patient to schedule 2024 025 hiren [facility] Testing Operator, [address], [address], [place], [address], 12/11/2024 11:32:52 sleep medicine referral 2024 025 [facility], [address], [address], [place], [address], 12/11/2024 10:58:28 Procedures cerumen removal (PROC) 2024 025 GRAPELAND In-Office Order, Internal Use Only DO Not Attach Compendium DO Not Attach Compendium, Do Not Delete/merge, [id number] 12/28/2024 15:29:43 Surgeries None recorded . Imaging MAMMO, screenin g, bilatera l - Perform Diagnost ic Mammogra m and Breast Ultrasou nd if needed / Perform Ultrasou nd Guided Aspirati on and/or Breast Biopsy if warrante d 2024 025 [facility], [address], [place], [address], 01/20/2025 14:29:51 Medication Orders Medrol (Sampson) 4 mg tablets in a dose pack 2024 025 [facility], [address] [place] [address], [address], 01/06/2025 13:53:41 magnesiu m 100 mg (as glycinat e) capsule 2024 025 [facility], [address] [place] [address], [address], 01/06/2025 13:54:54 ketocona zole 2 % shampoo 2024 025 [facility], [address] [place] [address], [address], 12/11/2024 10:36:18 magnesiu m 100 mg (as glycinat e) capsule 2024 025 [facility], [address] [facility], [place], [address], 12/11/2024 10:36:10 Patient TargetsNo targets recorded. Patient Instructions Encounter Date Encounter Id Patient Instructions Last Modified By Organization Details Last Modified Time 12/11/2024 [id number] Cervical Cancer Screening awychowski Not available 12/11/2024 [...] instructions awychowski Not available 12/11/2024 10:36:11 01/06/2025 [id number] neck pain: care instructions Not available 01/06/2025 13:53:33 [facility] visit, all current and discharge medications (OTC, herbal therapies, supplements) reviewed and reconciled with patient and or caregiver, including potential side effects, drug interactions, instructions, and the consequences of not taking medication. Reviewed potential barriers to medication adherence, such as side effects from medication or cost of medication. [email or web address] Not available 01/06/2025 13:33:35 Reason for Referral Pre Billing Specialist Referral for Sc reening for malignant neoplasm of cervix Patient to schedule Referring Physician: Family Lisa Medicine, Encounter Date: 12/11/2024 Sleep Medicine Referral for Obstructive sleep apnea syndrome Referring Physician: Family Lisa Medicine, Encounter Date: 12/11/2024 Reading Tutor Referral for L esion of scalp for left scalp lesion Referring Physician: Family Venessa Gonzalez, Encounter Date: 12/11/2024 Physical Therapist Referral for Neck pain right sided neck pain. localized. Referring Physician: Natividad Foley, Family Medicine, Encounter Date: 01/06/2025 Results Created Date Observation Date Name Description Value Unit Range Abnormal Flag Note LastModifiedBy Organization Detail LastModifiedTime 09/29/1909/28/2024 exter nal elect rocar diogr aphic recor rony more than 48 hours up to 7 days; recor rony, chelsey sis, revie w and inter preta tion (PROC ) Placement BY ADDY Jones Not Available In-Office Order Internal Use Only DO Not Attach Compendium DO Not Attach Compendium, Do Not Delete/merge, [id number] 09/03/2024 15:40:44 12/12/1912/11/2024 COMP. METAB OLIC PANEL (14) glucose 102 mg/dL 70-99 above high normal Not Available [facility] [address] [place], [address], 12/12/2024 08:06:48 12/12/19 25 12/11/2024 COMP. METAB OLIC PANEL (14) BUN 9 mg/dL 6-24 normal Not Available [facility] [address] [place], [address], 12/12/2024 08:06:48 12/12/19 25 12/11/2024 COMP. METAB OLIC PANEL (14) creatinine 0.66 mg/dL 0.57-1 .00 normal Not Available [facility] [address] [place], [address], 12/12/2024 08:06:48 12/12/19 25 12/11/2024 COMP. METAB OLIC PANEL (14) eGFR 107 mL/mi n/1.7 3 >59 normal Not Available [facility] [address] [place], [address], 12/12/2024 08:06:48 12/12/19 25 12/11/2024 COMP. METAB OLIC PANEL (14) BUN/creatini ne ratio 14 9-23 normal Not Available [facility] [address] [facility] [place], [address], 12/12/2024 08:06:48 12/12/19 25 12/11/2024 COMP. METAB OLIC PANEL (14) sodium 141 mmol/ L 134-14 4 normal Not Available [facility] [address] [facility] [place], [address], 12/12/2024 08:06:48 12/12/19 25 12/11/2024 COMP. METAB OLIC PANEL (14) potassium 3.6 mmol/ L 3.5-5. 2 normal Not Available [facility] [address] [facility], [place], [address], 12/12/2024 08:06:48 12/12/19 25 12/11/2024 COMP. METAB OLIC PANEL (14) chloride 102 mmol/ L 96-106 normal Not Available [facility] [address] [facility] [place], [address], 12/12/2024 08:06:48 12/12/19 25 12/11/2024 COMP. METAB OLIC PANEL (14) carbon dioxide, total 25 mmol/ L 20-29 normal Not Available [facility] [address] [facility] [place], [address], 12/12/2024 08:06:48 12/12/19 25 12/11/2024 COMP. METAB OLIC PANEL (14) calcium 9.3 mg/dL 8.7-10 .2 normal Not Available [facility] [address] [facility] [place], [address], 12/12/2024 08:06:48 12/12/19 25 12/11/2024 COMP. METAB OLIC PANEL (14) protein, total 6.8 g/dL 6.0-8. 5 normal Not Available [facility] [address] [place], [address], 12/12/2024 08:06:48 12/12/19 25 12/11/2024 COMP. METAB OLIC PANEL (14) albumin 4.2 g/dL 3.9-4. 9 normal Not Available [facility] [address] [place], [address], 12/12/2024 08:06:48 12/12/19 25 12/11/2024 COMP. METAB OLIC PANEL (14) globulin, total 2.6 g/dL 1.5-4. 5 Not Available [facility] [address] [place], [address], 12/12/2024 08:06:48 12/12/19 25 12/11/2024 COMP. METAB OLIC PANEL (14) bilirubin, total 0.3 mg/dL 0.0-1. 2 normal Not Available [facility] [address] [place], [address], 12/12/2024 08:06:48 12/12/19 25 12/11/2024 COMP. METAB OLIC PANEL (14) alkaline phosphatase 111 IU/L 44-121 normal Not Available [facility] [address] [place], [address], 12/12/2024 08:06:48 12/12/19 25 12/11/2024 COMP. METAB OLIC PANEL (14) AST (SGOT) 17 IU/L 0-40 normal Not Available [facility] [address] [place], [address], 12/12/2024 08:06:48 12/12/19 25 12/11/2024 COMP. METAB OLIC PANEL (14) ALT (SGPT) 16 IU/L 0-32 normal Not Available [facility]) [address], [place], [address], 12/12/2024 08:06:48 12/12/19 25 12/11/2024 URINA LYSIS , COMPL ETE specific gravity 1.024 1.005- 1.030 normal Not Available [facility] [address] [place], [address], 12/12/2024 08:06:49 12/12/19 25 12/11/2024 URINA LYSIS , COMPL ETE pH 6.5 5.0-7. 5 normal Not Available [facility] [address] [place], [address], 12/12/2024 08:06:49 12/12/19 25 12/11/2024 URINA LYSIS , COMPL ETE urine-color Yellow yellow Not Available [facility] [address] [place], [address], 12/12/2024 08:06:49 12/12/19 25 12/11/2024 URINA LYSIS , COMPL ETE appearance Clear clear Not Available [facility] [address] [place], [address], 12/12/2024 08:06:49 12/12/19 25 12/11/2024 URINA LYSIS , COMPL ETE WBC esterase Negati ve negati ve Not Available [facility] [address] [place], [address], 12/12/2024 08:06:49 12/12/19 25 12/11/2024 URINA LYSIS , COMPL ETE protein 1+ negati ve/tra ce abnormal Not Available [facility] [address] [place], [address], 12/12/2024 08:06:49 12/12/19 25 12/11/2024 URINA LYSIS , COMPL ETE glucose Negati ve negati ve Not Available [facility] [address] [facility], [place], [address], 12/12/2024 08:06:49 12/12/1912/11/2024 URINA LYSIS , COMPL ETE ketones Negati ve negati ve Not Available [facility] [address] [facility], [place], [address], 12/12/2024 08:06:49 12/12/19 25 12/11/2024 URINA LYSIS , COMPL ETE occult blood Negati ve negati ve Not Available [facility] [address] [facility], [place], [address], 12/12/2024 08:06:49 12/12/1912/11/2024 URINA LYSIS , COMPL ETE bilirubin Negati ve negati ve Not Available [facility] [address] [facility], [place], [address], 12/12/2024 08:06:49 12/12/1912/11/2024 URINA LYSIS , COMPL ETE urobilinogen ,semi-qn 0.2 mg/dL 0.2-1. 0 normal Not Available [facility] [address] [place], [address], 12/12/2024 08:06:49 12/12/1912/11/2024 URINA LYSIS , COMPL ETE nitrite, urine Negati ve negati ve Not Available [facility] [address] [place], [address], 12/12/2024 08:06:49 12/12/1912/11/2024 URINA LYSIS , COMPL ETE microscopic examination See below: Micro scopi c was indic ated and was perfo rmed. Not Available [facility] [address] [place], [address], 12/12/2024 08:06:49 12/12/19 25 12/11/2024 URINA LYSIS , COMPL ETE microscopic examination DIRECTOR OF CODING Not Available [facility] [address] [facility], [place], [address], 12/12/2024 08:06:49 12/12/19 25 12/12/2024 URINA LYSIS , COMPL ETE WBC 0-5 /hpf 0 - 5 Not Available [facility] [address] [facility], [place], [address], 12/12/2024 08:06:49 12/12/19 25 12/12/2024 URINA LYSIS , COMPL ETE RBC None seen /hpf 0 - 2 Not Available [facility] [address] [facility], [place], [address], 12/12/2024 08:06:49 12/12/19 25 12/12/2024 URINA LYSIS , COMPL ETE epithelial cells (non renal) >10 /hpf 0 - 10 abnormal Not Available [facility] [address] [facility], [place], [address], 12/12/2024 08:06:49 12/12/19 25 12/12/2024 URINA LYSIS , COMPL ETE epithelial cells (renal) DIRECTOR OF CODING Not Available [facility] [address] [facility], [place], [address], 12/12/2024 08:06:49 12/12/19 25 12/12/2024 URINA LYSIS , COMPL ETE casts None seen /lpf none seen Not Available [facility] [address] [facility], [place], [address], 12/12/2024 08:06:49 12/12/19 25 12/12/2024 URINA LYSIS , COMPL ETE cast type DIRECTOR OF CODING Not Available [facility] [address] [facility], [place], [address], 12/12/2024 08:06:49 12/12/19 25 12/12/2024 URINA LYSIS , COMPL ETE crystals DIRECTOR OF CODING Not Available [facility] [address] [facility], [place], [address], 12/12/2024 08:06:49 12/12/19 25 12/12/2024 URINA LYSIS , COMPL ETE crystal type DIRECTOR OF CODING Not Available [facility] [address] [facility], [place], [address], 12/12/2024 08:06:49 12/12/19 25 12/12/2024 URINA LYSIS , COMPL ETE mucus threads DIRECTOR OF CODING Not Available [facility] [address] [facility], [place], [address], 12/12/2024 08:06:49 12/12/19 25 12/12/2024 URINA LYSIS , COMPL ETE bacteria Few none seen/f ew Not Available [facility] [address] [facility], [place], [address], 12/12/2024 08:06:49 12/12/1912/12/2024 URINA LYSIS , COMPL ETE yeast DIRECTOR OF CODING Not Available [facility] [address] [facility], [place], [address], 12/12/2024 08:06:49 12/12/19 25 12/12/2024 URINA LYSIS , COMPL ETE trichomonas DIRECTOR OF CODING Not Available [facility] [address] [facility], [place], [address], 12/12/2024 08:06:49 12/12/19 25 12/12/2024 URINA LYSIS , COMPL ETE comment DIRECTOR OF CODING Not Available [facility] [address] [facility], [place], [address], 12/12/2024 08:06:49 12/12/19 25 12/12/2024 LDL FRANNIE STERO L (DIRE CT) LDL chol. (direct) 127 mg/dL 0-99 above high normal Not Available [facility] [address] [facility], [place], [address], 12/12/2024 08:06:50 12/12/19 25 12/12/2024 LDL FRANNIE STERO L (DIRE CT) LDL direct comment: DIRECTOR OF CODING Not Available [facility] [address] [facility], [place], [address], 12/12/2024 08:06:50 12/12/19 25 12/11/2024 HEMOG LOBIN A1C hemoglobin A1C 6.3 % 4.8-5. 6 above high normal Predi abete s: 5.7 - 6.4 Diabe guillermo: >6.4 Glyce george contr ol for adult s with diabe guillermo: <7.0 Not Available [facility] [address] [facility], [place], [address], 12/12/2024 08:06:50 12/12/19 25 12/12/2024 VITAM IN [...] Abdulkadir marmolejo [place]: The Natio nal [facility] Press . 2. Iban crews MF, Kranthi ey [place], Stephanie off-F errar i COOPER, et al. Evalu ation , treat ment, and preve ntion of vitam in D defic iency : an Endoc rine Socie ty clini aleksandar pract ice guide line. JCEM. 2010; 96(7) :1911 -30. Not Available [facility] [address] [facility], [place], [address], 12/12/2024 08:06:51 12/12/19 25 12/12/2024 MAGNE SIUM magnesium 2.0 mg/dL 1.6-2. 3 normal Not Available [facility] [address] [facility], [place], [address], 12/12/2024 08:06:51 12/29/1912/28/2024 cerum en remov al (PROC ) done by Maryan Not Available In-Office Order Internal Use Only DO Not Attach Compendium DO Not Attach Compendium, Do Not Delete/merge, [id number] 12/28/2024 15:03:52 10/07/19 25 09/28/2024 exter nal elect rocar diogr aphic recor ding more than 48 hours up to 7 days; recor ding, chelsey sis, revie w and inter preta tion (PROC ) No observ ation record ed. AMINTA In-Office Order Internal Use Only DO Not Attach Compendium DO Not Attach Compendium, Do Not Delete/merge, [id number] 10/07/2024 12:13:48 01/21/20 25 01/20/2025 MAMMO , [...] Lay letter mailed to fady pizarro WSN: [id number] Orderi ng Physic tasha: Tien Byrnes Dictat ed By: Licha Alanis MD Dictat ed Date/T michelle: 2:21 pm Review ed By: Licha Alanis MD Signed By: Licha Alanis MD Signed Date/T michelle: 2:21 pm Transc ribed By: NICKY Transc riptio n Date/T michelle: 2:18 pm Birads : Fady pizarro Class: Outpat ient [id number] (Outpt Imaging) [address] [place], [address], 01/26/2025 15:04:58 01/21/2001/20/2025 MAMMO , scree yeimy, bilat eral No observ ation record ed. [id number] [facility] [address] [place], [address], 01/26/2025 15:05:21 Result Notes Documentation Provider Name [...] (Negative) Lay letter mailed to patient WSN: [id number] Ordering Physician: Tien Garcia Dictated By: Dean Alanis MD Dictated Date/Time: 01/20/25 2:21 pm Reviewed By: Dean Alanis MD Signed By: Dean Alanis MD Signed Date/Time: 01/20/25 2:21 pm Transcribed By: NICKY Jewel Hole Gauger Date/Time: 01/20/25 2:18 pm Birads: Patient Class: Outpatient Penelope Willoughby natalie [facility] 01/26/2025 15:04:58 Problems Name Problem SNOMED Code Status Onset Date Resolution Date Notes Provider Name and Address Organization Details Recorded Time Atypical squamous cells of undetermi sarah significa nce on cervical Papanicol aou smear 677027996 Completed 201102/03/2016 Tien Garcia MD [address] [facility] [address], [place], [address] [facility] 6 11:19:33 Migraine 57186732 Active 2015 SHE Majano [facility] 3 10:12:38 Chronic constipat ion 872286467 Active 2015 [facility] 3 10:12:38 Hemorrhoi ds 53012853 Active 2015 SHE Majano [facility] 3 10:12:38 Gastroeso phageal reflux disease 083505408 Active 2015 SHE Bowman [facility] 5 14:31:25 Hypertens shama disorder 05622972 Active 2015 Kaelyn estrada [facility] 8 09:28:47 Hyperchol esterolem ia 65067690 Active 2015 Kaelyn estrada [facility] 8 09:28:47 Genital herpes simplex 88224243 Active 2015 SHE Majano [facility] 3 10:12:38 Exercise- induced asthma 42375191 Active 2015 SHE Majano, [facility] 3 10:12:38 Obstructi ve sleep apnea syndrome 70660016 Active 2015 auto CPAP 6-16cm H2O SHE Majano, [facility] 3 10:12:38 Uterine leiomyoma 33572631 Completed 201607/02/2017 Tien Garcia MD [address] [facility] [address], [place], [address] , [facility] 8 11:07:44 Vitamin D deficienc y 37938599 Active 2016 Aliya Mehdi SHE [place], [facility] 3 10:12:38 Proteinur ia 85902107 Completed 201607/20/2019 Tien Garcia MD [address] [facility] [address] [facility], [place], [address] , [facility] 5 06:27:36 Pain of multiple joints 42273031 Completed 201607/02/2017 Tien Garcia MD [address] [address], [place], [address] , [facility] 8 11:07:48 Foot pain 21149625 Completed 201607/02/2017 Tien Garcia MD [address] [facility] [address] [facility], [place], [address] , [facility] 8 11:07:27 Proteinur ia 71690522 Active 2016 Tien Garcia MD [address] [address], [place], [address] , [facility] 5 06:27:36 Atypical chest pain 476039772 Completed 201607/18/2018 Tien Garcia MD [address] [address], [place], [address] , [facility] 9 09:11:17 Major depressio n in remission 01993865 Active 2017 SHE Majano, [facility] 3 10:12:38 History of endometri osis 57096867430 131275 Active 2017 SHE Majano, [facility] 3 10:12:38 Non-alcoh olic fatty liver 729404179 Active 2017 Aliya SHE Fallon, [facility] 3 10:12:38 Plantar fasciitis 950014976 Completed 201807/20/2019 left Tien Garcia MD [address], [place], [address] , [facility] 0 10:52:36 Pityriasi s versicolo r 69130815 Active 2018 SHE Majano, [facility] 3 10:12:38 Macromast ia 201491844 Active 2018 [facility] 3 10:12:38 Morbid obesity 944748106 Active 2018 SHE Majano, [facility] 3 10:12:38 Impaired fasting glycemia 898789443 Completed 201807/20/2019 Tien Garcia MD [address], [place], [address] , [facility] 1 13:52:13 Prolonged QT interval 304048202 Active 2018 SHE Majano, [facility] 3 10:12:38 Knee pain Active 2018 SHE Majano, [facility] 3 10:12:38 Sprain of medial collatera l ligament of knee 18742776 Completed 201807/20/2019 Tien Garcia MD [address] [address], [place], [address] , [facility] 0 10:58:51 Osteoarth ritis of right hip joint 72662452677 9107 Active 2019 SHE Majano, [facility] 3 10:12:38 Uterine cervix absent 096629221 Active 2020 Tien Garcia MD [address] [address], [place], [address] , [facility] 1 08:54:29 Impaired fasting glycemia 589754234 Active 2020 SHE Majano, [facility] 3 10:12:38 Blood in urine 18762173 Completed 202003/21/2021 Tien Garcia MD [address] [address], [place], [address] , [facility] 1 09:02:04 Leukocyto sis 293544822 Completed 202003/21/2021 Tien Garcia MD [address] [address], [place], [address] , [facility] 1 09:03:09 Alkaline phosphata se above reference range 719274546 Active 2020 [facility] 3 10:12:38 Osteoarth ritis of wrist 827496163 Active 2020 [facility], [facility] 3 10:12:38 Eczema 26716322 Completed 202112/09/2023 Tien Garcia MD [address] [facility] [address], [place], [address] , [facility] 4 17:02:37 Constipat ion 64928389 Completed 202212/09/2023 Tien Garcia MD [address] [facility] [address], [place], [address] , [facility] 4 17:02:23 Pain in right thumb 49076762218 37446 Completed 202211/22/2022 Tien Garcia MD [address] [facility] [address], [place], [address] , [facility] 3 15:18:55 Pain of right knee joint 93839590922 4100 Completed 202212/09/2023 Tien Garcia MD [address] [facility] [address], [place], [address] , [facility] 4 14:51:59 Prediabet es 649483243 Active 2022 SHE Majano, [facility] 3 10:12:38 Uterus absent 022307018 Active 2023 Tien Garcia MD [address] [facility] [address], [place], [address] , [facility] 4 15:00:10 Irritable bowel syndrome character ized by constipat ion 032120815 Active 2023 Tien Garcia MD [address] [facility] [address], [place], [address] , [facility] 4 20:20:51 Lipoma of upper arm 902423969 Active 2023 Tien Garcia MD [address] [facility] [address], [place], [address] , [facility] 4 09:37:13 Tubular adenomato us polyp of colon 314792605 Active 2023 Tien Garcia MD [address] [facility] [address], [place], [address] , [facility] 4 15:20:49 Palpitati ons 70988591 Active 2024 Tien Garcia MD [address] [facility] [address], [place], [address] , [facility] 5 17:23:00 Right bundle branch block 53882023 Active 2024 Tien Garcia MD [address] [facility] [address], [place], [address] , [facility] 5 17:27:14 Premature atrial contracti on 170328269 Active 2024 Tien Garcia MD [address] [facility] [address], [place], [address] , [facility] 5 06:37:58 Multiple premature ventricul ar complexes [id number] Active 2024 Tien Garcia MD [address] [facility] [address], [place], [address] , [facility] 5 06:38:06 Body mass index 40+ - severely obese 573093751 Active 2024 Tien Garcia MD [address] [facility] [address], [place], [address] , [facility] 5 10:16:50 Problem Notes None recorded. Procedures Surgical History Date Name Laterality Status Provider Name and Address Organization Details Recorded Time 025 Most Recent Mammogram completed Penelope Willoughby [facility] 01/26/2025 15:04:54 025 Mammogram screening completed Penelope Willoughby [facility] 01/26/2025 15:04:34 024 Colonoscopy completed Tien Garcia MD [address] [facility], [place], [address], [facility] 04/24/2024 15:20:33 019 electrocardiogram with exercise test completed Tien Garcia MD [address] [facility] [address] [facility], [place], [address], [facility] 03/11/2019 06:40:03 017 Date of Last Pap Smear completed Anna Ramos MA [facility] 08/02/2016 09:17:39 016 Advanced Care Planning completed Tien Garcia MD [address] [address], [place], [address], [facility] 02/03/2016 10:34:39 015 Hemorrhoidectomy completed Tien Garcia MD [address] [address], [place], [address], [facility] 02/03/2016 10:09:57 013 Hysterectomy completed Alma Alejandro RN [facility] 03/31/2019 14:39:05 011 Date of Last Colonoscopy completed Kaelyn Sanders [facility] 08/08/2016 13:03:02 011 Colonoscopy completed Kaelyn Sanders [facility] 08/08/2016 13:02:49 Breast Surgery completed Anna Ramos MA [facility] 02/03/2016 09:42:35 Tubal Ligation completed Anna Ramos MA [facility] 02/03/2016 09:42:41 Imaging Results None recorded. Procedure Notes None recorded. Medical Equipment None Reported. Allergies Allergen ID Allergen Name Allergen Category Reaction Reaction Severity Criticality Documentation Date Start Date Code Code System Note Provider Name and Address Organization Details Recorded Time 33707 Bactrim medicatio n fever Not available Not available 02/03/2016 98196 9 [facility] 6 09:38:48 70822 Imitrex medicatio n other Not available Not available 02/03/2016 14492 3 RxNorm camacho donohue and [facility] 7 09:10:38 89274 sulfameth oxazole / trimethop rim medicatio n Not available Not available Not available 04/09/20252023 02555 RxNorm Other React ion(s ): n/v/f unrec ogniz ed react ion (text : GI intol eranc e, code: [id number]) (from [facility] e) Not Available [employer] External Data [employer] - prod 5 03:15:24 84594 sumatript an medicatio n Not available Not available Not available 04/09/20252023 06927 RxNorm Not Available [employer] - prod 5 03:15:24 Medications [...] Updated DateTime 5 177.17 cm 40.2 kg/m2 614602. 68 g 87 /min 96 % 97.3 [degF] 135/84 mm[Hg] Renata marshall MA [facility] 5 09:41:28 Date Recorded Body height Body mass index (BMI) Body weight Heart rate Oxygen saturation Body temperature Systolic And Diastolic Provider Name and Address Organization Details Last Updated DateTime 5 177.17 cm 40.8 kg/m2 855476. 2 g 84 /min 98 % 98.1 [degF] 132/85 mm[Hg] Katie Lora [facility] 5 13:38:34 Date Recorded Body height Body mass index (BMI) Body weight Heart rate Oxygen saturation Body temperature Systolic And Diastolic Provider Name and Address Organization Details Last Updated DateTime 5 177.17 cm 39.5 kg/m2 917575. 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 [facility] Information not available 11/30/2016 Do you or [...] virus, quadrivalent, preservative 016 completed Kaelyn estrada [facility] 01/13/2018 09:28:41 Influenza, split virus, quadrivalent, preservative 017 completed Kaelyn estrada [facility] 01/13/2018 09:28:41 Influenza, split virus, quadrivalent, preservative 019 completed SHE Bejarano [facility] 07/10/2019 13:00:35 Influenza, split virus, quadrivalent, preservative 020 completed SHE Bejarano [facility] 09/20/2020 08:46:31 Influenza, split virus, quadrivalent, PF 020 completed SHE Majano [facility] 02/21/2023 10:12:45 Tdap 019 completed SHE Majano [facility] 02/21/2023 10:12:45 Tdap 016 completed Not Available [facility] 06/13/2019 02:21:45 Influenza, recombinant, trivalent, PF 024 completed [facility] 09/03/2024 15:24:47 Influenza, split virus, quadrivalent, PF 018 completed Not Available [facility] 06/13/2019 02:22:16 pneumococcal polysaccharide PPV23 021 cancelled patient objection Tien Garcia MD [address], [address], [facility] 09/20/2020 09:17:12 Influenza, split virus, quadrivalent, PF 021 completed [facility] 03/21/2021 14:44:49 Influenza, split virus, quadrivalent, PF 023 completed Tien Garcia MD [address], [address], [facility] 02/21/2023 10:41:54 Past Encounters Encounter ID Performer Location Encounter Start Date Encounter Closed Date Diagnosis/Indication Diagnosis SNOMED-CT Code Diagnosis ICD10 Code Diagnosis IMO Codes Diagnosis Note [id number] Tien Garcia MD Main Office [address] [address] 02/03/2016 09:21:37 02/03/2016 10:35:10 Adult health examination 512367141 Z00.00 Will update immunizati on status, flu advised when available. Will screen based on risk factors and track down recent cervical and breast cancer screening results. Regular dental and ophtho care advised as well as seat belt and sunscreen use. Distracted driving discussed as well as advance directives . Snoring 07289993 R06.83 Screening is warranted based on symptoms and comorbidit ies. Pt has appt with sleep medicine in Apr, will obtain sleep study prior. Administra tion of diphtheria, pertussis, and tetanus vaccine 953174919 Z23 Essential hypertension 27592562 I10 Major depr essive disorder 382879755 F32.9 Wants to try weaning. Advised slow dose reduction and to call with any problems. Body mass index 30+ - obesity 459919663 Z68.39 Advance di rective discussed with patient 592968207 Z71.89 [id number] Tien Garcia MD Main Office [address] [address] [place] [address] 08/02/2016 09:00:18 08/02/2016 09:57:49 Hypercholesterolemia 48516770 E78.2 LDL not at goal. WIll titrate statin to goal LDL <130 as tolerated. Hypertensive disorder 38 457203 I10 Well controlled , continue current regimen. Obstructiv e sleep apnea syndrome 78209359 G47.33 On CPAP and tolerating fairly well. Has sleep medicine f/u on 08/10. Neck pain 01786396 M54.2 Sounds like a strain. Contiue NSAID PRN and call if new symptoms develop or no improvemen t over the next 3-4 weeks. [id number] Tien Garcia MD Main Office [address] [address] [place] [address] 08/31/2016 08:35:53 08/31/2016 09:24:46 Foot pain 24062950 M79.671 M79.672 ? vitamin D deficiency vs OA vs gout vs RA. Will start with labs and assess further depending on results. Pain of mu ltiple joints 62561135 M25.50 Proteinuria 96795280 R80 .9 On ACEI with good BP control. Will follow for now. Hypercholesterolemia 136 77313 E78.2 LDL not at goal. WIll switch to more potent statin and titrate dose to goal LDL <130 as tolerated. Knee pain 80215757 M25.5 62 Will need further eval if persistent /worse and depending on lab results. [id number] Tien Garcia MD Main Office [address] [address] [place] [address] 11/30/2016 09:03:27 11/30/2016 09:43:24 Foot pain 18310689 M79.671 M79.672 Will ask podiatry for mgmt recommenda tions. Hypertensive disorder 38 911801 I10 Well controlled , continue current regimen. Vitamin D deficiency 347 97304 E55.9 WIll start supplement and recheck level in 3-4 months. Proteinuria 28272530 R80 .9 On ACEI with good BP control. Will follow for now. Hypercholesterolemia 136 68894 E78.2 LDL not at goal. WIll switch to more potent statin and titrate dose to goal LDL <130 as tolerated. Obstructiv e sleep apnea syndrome 93222379 G47.33 Pt will contact sleep medicine to discuss options to make treatment more tolerable. [id number] Tien Garcia MD Main Office [address] [address] [place] [address] 01/22/2017 14:55:17 01/22/2017 15:48:51 [id number] Chacha Owens PA-C Main Office [address] [address] [place] [address] 01/23/2017 12:54:23 01/23/2017 13:47:29 Hypertensive disorder 47224020 I10 Uncontroll ed hypertensi on ? symptomati c vs. symptoms related to anxiety. increase metoprolol to 100 mg BID and add HCTZ 12.5 mg. High risk of cardiac disease due to obesity, hyperlipid emia and hypertensi on. Stress test ordered. Follow up in 2 weeks. Pt. was asked to test BP at home daily. Atypical chest pain 1025 45173 R07.89 [id number] Chacha Owens PA-C Main Office [address] [address] [place] [address] 02/06/2017 13:42:22 02/06/2017 14:41:33 Hypertensive disorder 61143292 I10 IMproved BP , but not at goal yet . Increase HCTZ to 25 mg daily Continue Metoprolol and LIsinopril . Test BP daily and return in 6 weeks. [id number] Tien Garcia MD Main Office [address] [address] [place] [address] 07/02/2017 10:25:29 07/02/2017 11:37:04 Adult health examination 987324916 Z00.00 Immunizati on status is utd. Will screen based on risk factors. Cervical and breast cancer screening utd. Regular dental and ophtho care advised as well as seat belt and sunscreen use. Distracted driving discussed as well as advance directives . Body mass index 40+ - severely obese 040514311 E66.01 Z68.41 Epigastric pain 09801320 R10.13 Check u/s to rule out gallbladde r disease. Refer back to GI if normal and symptoms worsen/per sist. Proteinuria 51637191 R80 .9 On ACEI with good BP control. Will follow. Vitamin D deficiency 347 16032 E55.9 WIll start supplement and recheck level in 3-4 months. Hypercholesterolemia 136 00703 E78.2 LDL was not at goal. Need to assess control since starting atorvastat in. WIll titrate dose to goal LDL <130 as tolerated. Hypertensive disorder 38 052057 I10 Well controlled , continue current regimen. Gastroesop hageal reflux disease 333539057 K21.9 Refer back to GI for possible EGD if epigastric pain Chronic constipation 236 755796 K59.09 Possible cause of abd discomfort . OTC fiber supplement and PRN laxative advised. Pityriasis versicolor 56 945667 B36.0 Previously effective. Requesting refill. Exercise-i nduced asthma 49796707 J45.990 Call if symptoms worsen. [id number] Tien Garcia MD Main Office [address] [facility] [address] [facility] [place] [address] 12/23/2017 12:49:25 12/23/2017 13:24:34 Hypertensive disorder 49733827 I10 Better on recheck with plenty of modifiable lifestyle factors available. Will work on getting 30min daily of steady exercise and reducing pasta/rice intake. Continue current regimen for now. Hypercholesterolemia 136 42928 E78.2 LDL was at goal. Will continue current regimen. Proteinuria 78332588 R80 .9 Likely hypertensi on related will continue to monitor. Knee pain 84969835 M25.5 62 Will need further eval if persistent /worse. [id number] Tien Garcia MD Main Office [address] [facility] [address] [facility] [place] [address] 03/18/2018 09:13:54 03/18/2018 10:07:01 Hypertensive disorder 30877391 I10 Well controlled , conitnue current regimen. Needs infl uenza immunization 373259739 Z23 Pain of wrist region 566 51939 M25.532 ? OA vs CTS vs tendinitis . Will image and refer to ortho for further assessment /mgmt. Hypercholesterolemia 136 52962 E78.2 LDL at goal. Will continue current regimen. [id number] Tien Garcia MD Main Office [address] [facility] [address] [place] [address] 06/13/2018 12:45:00 06/13/2018 13:20:28 Acute upper respiratory infection 45948390 J06.9 Supportive /symptomat ic tx advised. Call inb/worse or if second sickening occurs. Cough 82959631 R05 Consider course of prednisone inb/worse or wheezing develops. Cellulitis of external nose 70191050 J34.0 Will cover for cellulitis from respirator y esperanza. Pt will contact place where piercing was done to have it removed. Call if swelling/e ythema worsens. [id number] Tien Garcia MD Main Office [address] [place] [address] 07/18/2018 08:31:53 07/18/2018 09:30:47 Adult health examination 779455355 Z00.00 Immunizati on status is utd. Will screen based on risk factors. Breast cancer screening utd, cervical cancer screening not indicated. Regular dental and ophtho care advised as well as seat belt and sunscreen use. Distracted driving discussed as well as advance directives . Screening for malignant neoplasm of breast 768387503 Z12.39 Screening for malignant neoplasm of cervix 287968925 Z12.4 Body mass index 40+ - severely obese 111221929 Z68.41 Vitamin D deficiency 347 35670 E55.9 Normal level in November on this dose. Will continue. Major depr ession in remission 20668162 F32.5 Obstructiv e sleep apnea syndrome 99619267 G47.33 Pt will contact sleep medicine to discuss options to make treatment more tolerable. Hypercholesterolemia 136 09339 E78.2 LDL at goal. Will continue current regimen. Hypertensive disorder 38 907623 I10 Well controlled , conitnue current regimen. Gastroesop hageal reflux disease 745168485 K21.9 Refer back to GI for possible EGD if epigastric pain Macromastia 052322587 N6 2 Pt inquiring re breast reduction surgery. Has had persistent back pain but no other reported complicati ons at this time. Proteinuria 43491769 R80 .9 Likely hypertensi on related will continue to monitor, on max dose ACEI. Morbid obesity 645909008 E66.01 [id number] Diana glass MD Main Office [address] [address] [place] [address] 08/25/2018 10:38:43 08/25/2018 11:03:19 Insect bite, nonvenomous, of upper arm 293001306 S40.862A Advised to apply warm compress and take antihistam nina as discussed. Call office if area gets bigger or any fever, chills. [id number] Lito Paris MD Main Office [address] [address] [place] [address] 09/09/2018 10:41:27 09/09/2018 11:32:09 Allergic urticaria 98101361 L50.0 [id number] Tien Garcia MD Main Office [address] [address] [place] [address] 10/27/2018 09:33:20 10/27/2018 10:34:19 Dizziness on standing up 181518475 R42 Likely realted to some mild orthostasi s, sx are rare. Pt advised to get up slowly from sitting position, encourage hydration. If she had persistent dizziness she should followup. She is able to work without limitation s. Hypertensive disorder 38 814660 I10 BP controlled , no orthostasi s with position change today. EKG with occasional premature beat, has long QT (no new meds), will get old ekg to compare. [id number] Gabriel Tafoya MD Main Office [address] [address] [place] [address] 01/12/2019 08:46:50 01/12/2019 09:27:23 Sprain of knee 75573118 S83.92XA Overuse injury of the L> knee with prepatella r tendonitis . Pt. is advised to lower activity, stabilize with elastic brace , ice 2-3 times daily 15-20 min and take Aleve 220 mg 12- BID with food. F/u as needed. [id number] Tien Garcia MD Main Office [address] [address] [place] [address] 01/22/2019 12:41:20 01/22/2019 13:27:43 Major depression in remission 63115471 F32.5 Well controlled and regimen tolerated. Will continue current dosing. Hypertensive disorder 38 619788 I10 Well controlled , continue current regimen. Prolonged QT interval 11 I45.81 Seen by cardiology . Not felt to be the cause of her dizziness but has stress test booked Pain in left knee 877535 1340 01932 M25.562 ? meniscus vs patellar disease vs OA. If xr negative will try PT and consult PMR. [id number] Tien Garcia MD Main Office [address] [facility] [address] [place] [address] 03/06/2019 09:25:28 03/06/2019 09:55:01 Knee pain 43103109 M25.562 Working with PT and PMR. Hypertensive disorder 38 384266 I10 Well controlled , continue current regimen. Dizziness 125160440 R42 Will decrease diuretic to see if that is contributi ng to orthostati c symptoms. Prolonged QT interval 11 I45.81 Seen by cardiology . Not felt to be the cause of her dizziness. Will monitor and avoid rx's that can worsen QT interval. [id number] Tien Garcia MD Main Office [address] [facility] [address] [place] [place] [address] 07/10/2019 12:40:18 07/10/2019 13:25:23 Pain in right lower limb 521014064 M79.604 Possible hip pathology/ bursitis vs radiculopa thy. The later is not totally consistent with reported symptoms and exam findings. If Hip Xray is abnl will redirect referral to ortho. Try PT and refer to PMR to help further elucidate etiology. [id number] Tien Garcia MD Main Office [address] [facility] [address] [place] [address] 07/20/2019 10:10:22 07/20/2019 11:14:22 Adult health examination 744222010 Z00.00 Immunizati on status is utd. Screening utd based on risk factors. Breast cancer screening utd, cervical cancer screening not indicated. Regular dental and ophtho care advised as well as seat belt and sunscreen use. Distracted driving discussed as well as advance directives . Osteoarthr itis of right hip joint 9263401183 78314 M16.11 Has appt with PMR. Screening for malignant neoplasm of breast 280165475 Z12.39 Screening for malignant neoplasm of cervix 062609627 Z12.4 PAP not indicated in post hysterecto my pt Body mass index 40+ - severely obese 515192785 Z68.41 Major depr ession in remission 14915699 F32.5 Well controlled and regimen tolerated. Will continue current dosing. Genital he rpes simplex 33007460 A60.9 On chronic suppressiv e therapy without issue. Chronic constipation 236 499555 K59.09 Stool softner not helping. Will try senna. Gastroesop hageal reflux disease 516342353 K21.9 Well controlled without warning signs. Continue PPI. Hypercholesterolemia 136 75415 E78.2 LDL at goal. Will continue current regimen. Hypertensive disorder 38 003608 I10 Well controlled , continue current regimen. Obstructiv e sleep apnea syndrome 76618238 G47.33 Non compliant with CPAP. Pt will contact sleep medicine to discuss options to make treatment more tolerable. Understand s potential consequenc es to untreated SKYE. Morbid obesity 596635482 E66.01 [id number] Tien Garcia MD Main Office [address] [facility] [address] [place] [address] 09/20/2020 08:34:30 09/20/2020 09:25:07 Adult health examination 357402662 Z00.00 Immunizati on status is utd. Screening utd based on risk factors. Breast cancer screening utd, cervical cancer screening not indicated. Regular dental and ophtho care advised as well as seat belt and sunscreen use. Distracted driving discussed as well as advance directives . Hypercholesterolemia 136 01218 E78.2 LDL at goal. Will continue current regimen. Major depr ession in remission 60899594 F32.5 Well controlled and regimen tolerated. Will continue current dosing. Screening for malignant neoplasm of breast 252135342 Z12.39 Screening for malignant neoplasm of cervix 792069329 Z12.4 PAP not indicated in post hysterecto my pt Dysuria 08097744 R30.9 More of a urine odor issue. If urine testing is normal will advise hydration. If symptoms worsen consider urology referral. Morbid obesity 790367585 E66.01 Administra tion of pneumococcal vaccine 98383888 Z23 Genital he rpes simplex 42821724 A60.9 On chronic suppressiv e therapy without issue. Gastroesop hageal reflux disease 038295674 K21.9 Well controlled without warning signs. Continue PPI. Hypertensive disorder 38 327748 I10 Usually well controlled did not take meds today. Continue current regimen. Obstructiv e sleep apnea syndrome 82956762 G47.33 Non compliant with CPAP. Pt will contact sleep medicine to discuss options to make treatment more tolerable. Understand s potential consequenc es to untreated SKYE. Body mass index 40+ - severely obese 847423850 Z68.41 Generalize d anxiety disorder 96994440 F41.1 Flying to [place] today. Has flight anxiety. No flags on STORY READER report. [id number] Lito Paris MD Main Office [address] [facility] [address] [place] [address] 12/09/2020 08:34:21 12/09/2020 09:08:33 Bilateral carpal tunnel syndrome 2532646497 9586166 G56.03 she has been seen and diagnosed in the past. needs a brace for her right hand. she duggan snot wish to see hand surgery or have injection at this time. Pain of ri ght shoulder joint 2667726144 3989134 M25.511 palpable lump ? lipoma vs inclusion cyst. Will get US and then refer luna valverde. Abdominal pain 65905104 R10.9 abd pain with sift stools x 3 days. recommend she cut back senna to only once daily for now and start a probiotic daily x 30 days. Will check bloodwork, if elevated BWC or other abnormalit y may need imaging. [id number] Tien Garcia MD Main Office [address] [facility] [address] [place] [address] 03/21/2021 08:30:16 03/21/2021 09:11:54 Hypertensive disorder 83144090 I10 Well controlled continue current regimen. Hypercholesterolemia 136 97481 E78.2 LDL at goal. Will continue current regimen. Needs infl uenza immunization 337386253 Z23 Osteoarthr itis of wrist 945387583 M19.039 Suspect this and possibly CTS as well. Declines hand surgery referral. Impaired f asting glycemia 385780280 R73.01 Will monitor. 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 Albuminuria 450020331 R8 0.9 Has urology appt. Will monitor this issue. Adequate hydration and limiting NSAID use advised. Vitamin D deficiency 347 88491 E55.9 Will increase vitamin d supplement for Winter months. Major depr ession in remission 66621689 F32.5 Having some difficulty coping with recent relationsh ip stressors. Requesting therapy referral. Advised to call if symptoms are becoming more limiting. Counseling 763803241 Z71 .9 Referral for counseling with Ned / PRAFUL Arboleda. Please provide patient with contact info to schedule their appointmen tAbena Davidson#[phone] email: [email or web address] [id number] Tien Garcia MD Main Office [address] [address] 07/04/2021 09:02:56 07/04/2021 09:46:11 Hypertensive disorder 68163416 I10 Well controlled continue current regimen. Hypercholesterolemia 136 70136 E78.2 LDL at goal. Will continue current regimen. Going for labs this AM. Gastroesop hageal reflux disease 863649428 K21.9 Well controlled without warning signs. Continue PPI. Situationa l panic attack 996708904 F41.0 Impaired f asting glycemia 758393549 R73.01 Will monitor. [id number] Tien Garcia MD Main Office [address] [address] 09/26/2021 08:34:42 09/26/2021 09:36:11 Adult health examination 108332405 Z00.00 Immunizati on status is utd. Screening utd based on risk factors. Breast cancer screening utd, cervical cancer screening not indicated. Regular dental and ophtho care advised as well as seat belt and sunscreen use. Distracted driving discussed as well as advance directives . Gastroesop hageal reflux disease 591491894 K21.9 Well controlled without warning signs. Continue PPI. Hypercholesterolemia 136 49168 E78.2 LDL at goal. Will continue current regimen. Going for labs this AM. Hypertensive disorder 38 468464 I10 Well controlled continue current regimen. Impaired f asting glycemia 765310815 R73.01 Will monitor. Screening for malignant neoplasm of cervix 324682700 Z12.4 PAP not indicated in post hysterecto my pt Screening for malignant neoplasm of breast 122893008 Z12.39 Screening for malignant neoplasm of colon 280092009 Z12.11 Pt low risk and asymptomat ic. Screening deferred. Alkaline p hosphatase above reference range 884558147 R74.8 Prolonged QT interval 11 2521394 I45.81 Seen by cardiology . Not felt to be the cause of her dizziness. Will monitor and avoid rx's that can worsen QT interval. Non-alcoho lic fatty liver 112230790 K76.0 Vitamin D deficiency 347 28629 E55.9 Will increase vitamin d supplement for Winter months. Body mass index 30+ - obesity 231870998 E66.01 Z68.39 [id number] Tien Garcia MD Main Office [address] [facility] 207 [facility] [place] [address] 04/26/2022 11:37:31 04/26/2022 12:19:49 Hypertensive disorder 17124862 I10 Fair control, untreated SKYE may be a contributi ng factor. Will continue current regimen for now and monitor. Gastroesop hageal reflux disease 575734909 K21.9 Well controlled without warning signs. Continue PPI. Pityriasis versicolor 56 354294 B36.0 Previously effective. Requesting refill. Eczema 44905552 L30.9 Possible Ni allergy. callinb/wo rse with topical steroid. Digital mu cous cyst of right hand 1872309508 844643 M67.441 Affording some discomfort , so will ask ortho for eval. Obstructiv e sleep apnea syndrome 53149841 G47.33 Non compliant with CPAP. Pt will contact sleep medicine to discuss options to make treatment more tolerable. Understand s potential consequenc es to untreated SKYE. [id number] Tien Garcia MD Telehealt h 3640 [facility] [address] [place] [address] 06/19/2022 08:21:26 06/19/2022 11:18:09 COVID-19 [id number] U07.1 cont otc meds (prn tyl, robitussin [...] to hold statin x 1 week Counseling 492951466 Z71 .9 Health advice, education or counseling done for COVID 19 [id number] Tien Garcia MD Main Office [address] [facility] [address] [facility] [place] [address] 07/26/2022 09:29:09 07/26/2022 10:39:13 Pain in right thumb 9393866001 091582 M79.644 Possible OA vs tendonitis . Will image and manage as OA given her history and risk factors. If xray unremarkab le and symptoms persist will manage as Dequarvain s. If persistent /worse will refer to ortho. Constipation 24991128 K5 9.00 Screen for secondary causes, add fiber and change laxative regimen. Hypertensive disorder 38 945617 I10 Not well controlled but no meds today. Will reassess at f/u, pt advised to call if BP >140/90 at home. [id number] Tien Garcia MD Main Office [address] [facility] 207 [place] [address] 11/22/2022 14:44:10 11/22/2022 15:41:46 Adult health examination 363121568 Z00.00 Immunizati on status is utd. Screening utd based on risk factors. Breast cancer screening utd, cervical cancer screening not indicated. Regular dental and ophtho care advised as well as seat belt and sunscreen use. Distracted driving discussed as well as advance directives . Body mass index 40+ - severely obese 638129038 E66.01 Z68.41 Constipation 97777843 K5 9.00 Needs GI eval for this and colon cancer. [place] [facility] Advised to call if not contacted in the next month. Hemorrhoids 62025131 K64 .9 Hypercholesterolemia 136 69130 E78.2 LDL at goal. Will continue current regimen. Going for labs this AM. Hypertensive disorder 38 490694 I10 Not well controlled but no meds today. Will reassess at f/u, pt advised to call if BP >140/90 at home. Given proteinuri a will ask renal to help. Impaired f asting glycemia 497432887 R73.01 Will monitor/re assess Non-alcoho lic fatty liver 646229585 K76.0 Obstructiv e sleep apnea syndrome 18092076 G47.33 Non compliant with CPAP. Pt will contact sleep medicine to discuss options to make treatment more tolerable. Understand s potential consequenc es to untreated SKYE. Vitamin D deficiency 347 44173 E55.9 Will increase vitamin d supplement for Winter months. Pain of ri ght knee joint 3638484828 79908 M25.561 Major depr ession in remission 94920956 F32.5 Having some difficulty coping with recent relationsh ip stressors. Requesting therapy referral. Advised to call if symptoms are becoming more limiting. Administra tion of pneumococcal vaccine 21485203 Z23 Alkaline p hosphatase above reference range 573684300 R74.8 Albuminuria 925030368 R8 0.9 Has urology appt. Will monitor this issue. Adequate hydration and limiting NSAID use advised. Prolonged QT interval 11 3636192 I45.81 Seen by cardiology . Not felt to be the cause of her dizziness. Will monitor and avoid rx's that can worsen QT interval. [id number] Tien Garcia MD Main Office [address] [facility] [address] [place] [address] 02/21/2023 10:06:48 02/21/2023 10:42:52 Needs influenza immunization 114720936 Z23 Chronic constipation 236 559082 K59.09 Currently well controlled , continue current regimen. Still due for colonoscop y, advised to call [facility] [place] determine where she is on their wait list. Hypercholesterolemia 136 29261 E78.2 Not at goal, ? complinace . Reassess before next appt. Essential hypertension 50401729 I10 Well controlled , continue current regimen. Hypokalemia 33076106 E87 .6 Will increase dietary intake and monitor. Likely relate to HCTZ. Vitamin D deficiency 347 87602 E55.9 Will increase vitamin d (extra 200iu QOD) supplement for Winter months. Neck pain 46786750 M54.2 Sounds like a strain. See if PRN muscle relaxant helps. Obstructiv e sleep apnea syndrome 39781692 G47.33 Non compliant with CPAP. Pt is following with sleep medicine. Understand s potential consequenc es to untreated SKYE. [id number] RAUL REMY MD Main Office [address] [place] [address] 03/14/2023 11:04:45 03/14/2023 11:31:57 Low back pain 893793297 M54.50 - acute lower back pain- ordered [...] physical therapy, referral- RTC precaution s given [id number] Lito Paris MD Main Office [address] [place] [address] 11/21/2023 09:50:12 11/21/2023 10:21:59 Pruritus of vagina 17125500 L29.3 x4-5 weeks intermitte ntly-sympt oms of vaginal itching mostly in the mornings; has noticed vaginal dryness-de nies of any abnormal vaginal discharge, bleeding, or smell-no known trauma or scented products-w ill check vaginitis panel, possible symptom of starla-menop ause-pt physiatrist recently retired and has a new physiatrist provider Venereal d isease screening 018133815 Z11.3 per pt request [id number] Tine Garcia MD Main Office [address] [place] [address] 12/09/2023 14:19:09 12/09/2023 15:09:11 Screening for malignant neoplasm of breast 332410728 Z12.39 Screening for malignant neoplasm of cervix 631613175 Z12.4 She states that she was told she needs follow up PAP and Dr. Chaves retired. Contact info provided. Adult heal th examination 834449393 Z00.00 COVID/PCV2 0 advised via local pharmacy as well as flu in the Fall. Screening utd based on risk factors. Breast cancer screening utd, cervical cancer screening utd. Regular dental and ophtho care advised as well as seat belt and sunscreen use. Distracted driving discussed as well as advance directives . Constipation 60324917 K5 9.00 Needs GI eval for this and colon cancer. On wait [place] [facility]. Advised to call if not contacted in the next month. Hemorrhoids 60630343 K64 .9 Hypercholesterolemia 136 54960 E78.2 LDL at goal. Will continue current regimen. Going for labs this AM. Hypertensive disorder 38 007463 I10 Not well controlled but no meds today. Will reassess at f/u, pt advised to call if BP >140/90 at home. Given proteinuri a will ask renal to help. Impaired f asting glycemia 988303424 R73.01 Will monitor/re assess Non-alcoho lic fatty liver 046386764 K76.0 Obstructiv e sleep apnea syndrome 28786583 G47.33 Non compliant with CPAP. Pt will contact sleep medicine to discuss options to make treatment more tolerable. Understand s potential consequenc es to untreated SKYE. Vitamin D deficiency 347 67977 E55.9 Will increase vitamin d supplement for Winter months. 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 Requesting therapy referral. Advised to call if symptoms are becoming more limiting. Alkaline p hosphatase above reference range 655424810 R74.8 Minimal elevation last year. Will reassess. Albuminuria 927228055 R8 0.9 Has urology appt. Will monitor this issue. Adequate hydration and limiting NSAID use advised. Prolonged QT interval 11 I45.81 Seen by cardiology . Not felt to be the cause of her dizziness. Will monitor and avoid rx's that can worsen QT interval. Hot sweats 980923262 R61 Difficult to ascertain following hysterecto my. WIll check labs. Migraine 56835753 G43.90 9 Eye exam encouraged as well as CPAP compliance . 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 Body mass index 30+ - obesity 253331595 E66.01 Z68.39 [id number] Tien Garcia MD Main Office [address] [facility] [address] [place] [address] [place] [address] 03/13/2024 08:59:48 03/13/2024 09:41:05 Migraine 00531095 G43.909 Improved. Eye exam encouraged as well as CPAP compliance . Vitamin D deficiency 347 90709 E55.9 Will increase vitamin d supplement for Winter months. Exercise-i nduced asthma 21299864 J45.990 Call if symptoms worsen. Irritable bowel syndrome characterized by constipation 305960173 K58.1 Better with fiber and miralax. Colonoscop y being scheduled. Obstructiv e sleep apnea syndrome 00490343 G47.33 Non compliant with CPAP. Pt will contact sleep medicine to discuss options to make treatment more tolerable. Understand s potential consequenc es to untreated SKYE. Morbid obesity 232771723 E66.01 Nutrition referral provided, will assess progress in 3-4 months. Prolonged QT interval 11 I45.81 Seen by cardiology previously . Not felt to be the cause of her dizziness. Will monitor and avoid rx's that can worsen QT interval. Pt counseled on concerning medication s and to advise any providers of this diagnosis. Lipoma of upper arm 1889 62532 D17.20 Reassuranc e provided will monitor clinically . If enlarging or changing would refer for imaging to confirm. [id number] Tien Garcia MD Main Office [address] [facility] [place] [address] 09/03/2024 15:07:40 09/03/2024 15:57:18 Migraine 37427387 G43.909 Improved. Eye exam encouraged as well as CPAP compliance . Palpitations 62753419 R0 0.2 Based on risk factors (obesity/O SA/prolong ed QT/HTN) and frequency further testing is warranted. Prolonged QT interval 11 I45.81 Prolonged QT not present on ECG today but now with new RBBB. Right bund le branch block 71940045 I45.10 Given new finding will refer for additional testing. Start with ECHO. If abnl or symptoms start to correlate to exertion would need follow up stress testing. Obstructiv e sleep apnea syndrome 37500738 G47.33 Non compliant with CPAP. Pt will contact sleep medicine to discuss options to make treatment more tolerable. Understand s potential consequenc es to untreated SKYE. [id number] Allegra Oquendo MD Main Office [address] [facility] [place] [address] 09/28/2024 09:34:35 09/28/2024 12:54:59 [id number] Tien Garcia MD Main Office [address] [facility] [address] [place] [address] 10/06/2024 13:36:28 10/06/2024 13:37:49 [id number] Tien Garcia MD Main Office [address] [facility] [address] [place] [address] 12/11/2024 09:30:59 12/11/2024 10:43:06 Adult health examination 560254485 Z00.00 Shingrix/C OVID/PCV20 advised via local pharmacy as well as flu in the Fall. Screening utd based on risk factors. Breast cancer screening utd, cervical cancer screening utd. Regular dental and ophtho care advised as well as seat belt and sunscreen use. Distracted driving discussed as well as advance directives . Pityriasis versicolor 56 344167 B36.0 Previously effective. Requesting refill. Vitamin D deficiency 347 72840 E55.9 Will reassess with dose increase. Constipation 94707429 K5 9.00 Colonoscop y done in 2023. See if Mg supplement helps Hypercholesterolemia 136 38551 E78.2 LDL at goal. Will continue current regimen. Going for labs. Hypertensive disorder 38 801216 I10 Well controlled continue current regimen. Pt advised to call if BP >140/90 at home. Given proteinuri a will ask renal to help. Impaired f asting glycemia 740452064 R73.01 Will monitor/re assess Non-alcoho lic fatty liver 945170364 K76.0 Obstructiv e sleep apnea syndrome 92106383 G47.33 Non compliant with CPAP. Pt will contact sleep medicine to discuss options to make treatment more tolerable. Understand s potential consequenc es to untreated SKYE. Major depr ession in remission 57738419 F32.5 Having some difficulty coping with recent relationsh ip stressors. Requesting therapy referral. Advised to call if symptoms are becoming more limiting. Alkaline p hosphatase above reference range 535699774 R74.8 Minimal elevation last year. Will reassess. Albuminuria 266489814 R8 0.9 Will monitor this issue. Adequate hydration and limiting NSAID use advised. Prolonged QT interval 11 4546924 I45.81 Seen by cardiology in the past. Not present on recent ECG. Will monitor and avoid rx's that can worsen QT interval. Migraine 73646352 G43.90 9 Eye exam encouraged as well as CPAP compliance . Uterus absent 009211872 Z90.710 Still needs PAP and will find a new gynecologi st. Hemorrhoids 84398841 K64 .9 Screening for malignant neoplasm of breast 844345081 Z12.39 Screening for malignant neoplasm of cervix 715295241 Z12.4 Has appointmen t with [facility] [employer] [facility] Body mass index 40+ - severely obese 687424576 Z68.41 [id number] Interested in GLP1 therapy, and insurance may cover. Pt advised to inquire about coverage and in network nutritiona l counsleing options. Impacted c erumen in left ear 3371526474 721611 H61.22 0238591 Lesion of scalp 29470394 91 00 L98.9 663398 Possible seborrhea but if persistent /worse will make appt with derm. Administra tion of pneumococcal vaccine 10826797 Z23 [id number] RAUL REMY MD Main Office [address] [facility] [place] [address] 12/28/2024 15:00:46 12/28/2024 15:21:52 Impacted cerumen in right ear 6864330218 528721 H61.21 5986890 [id number] Lito Paris MD Main Office [address] [facility] [place] [address] 01/06/2025 13:31:03 01/06/2025 13:56:46 Neck pain 81386300 M54.2 58245848 reviewed hospital documentat ion-was evaluated at [facility] for right sided neck pain>was given toradol injection and lidocaine patches-si nce discharge, continues to endorse symptoms-d enies of any neck trauma, vision changes, numbness, weakness, chest pain, difficulty breathing- no paraspinal tenderness -will refer to PT and provide medrol pack Migraine 78253922 G43.90 9 refill provided [id number] Tien Garcia MD Main Office [address] [facility] [place] [address] 04/09/2025 10:02:38 04/09/2025 11:01:43 Prediabetes 735097864 R73.03 Will monitor/re assess Severe obesity 342376914 1 9104 E66.01 65387246 Interested in GLP1 therapy, and insurance may cover. Pt advised to inquire about coverage and in network nutritiona l counseling options. Hypertensive disorder 38 845630 I10 Well controlled continue current regimen. Pt advised to call if BP >140/90 at home. Given proteinuri a will ask renal to help. Hypercholesterolemia 136 65280 E78.2 LDL at goal. Will continue current regimen. Going for labs. Chronic constipation 236 052458 K59.09 Currently well controlled , continue current regimen. Still due for colonoscop y, advised to call [facility] to determine where she is on their wait list. Seborrheic dermatitis of scalp 379441853 L21.9 040502 Health Concerns Section Related Observation LastModified by Organization Detai ls LastModified Time None Recorded Concern Status LastModified by Organization Details LastModified Time None Recorded Advance Directives Directive Y: HCP/ Sister-Niki, Mom-E ingrid Payers Insurance Date Sequence Insurance Name Policy Number Policy Bond Covered Member ID Bond Member ID Guarantor Name 04/09/2025 1 [facility] [place] [id number] [facility] [id number] [id number] [facility] Notes Date Note Type Note Provider Name and Address Organization Details Recorded Time 5 text/html Generic HPI TemplateReported by PatientHere for a physical. Feels well. Seeing dentist and ophtho regularly. Tien Garcia MD [address], [address], [facility] 12/11/2024 13:34:38 5 text/html ROS as noted in the HPI Joyce is a 49yr old F who presents for a hospital f/u. Was evaluated at [facility] for neck pain. Endorsing neck pain x5 days. Has tried flexeril, tylenol, lidocaine patch, and Excedrin. Was educated on conservative measurements in the ER. Denies of any neuropathy. Denies any neck trauma, vision changes, numbness, weakness, chest pain, difficulty breathing. GILMAR BUCK [address] [place], [address], [facility] 01/08/2025 13:09:27 5 text/html ConstipationReported by PatientHPIFor [...]
== END 2025-04-28 10:49 | disposition home or self-care (01) ==
LOC: HO.LNP 10:48
PROVIDERS: PCP Internal Medicine; Visit Provider Obstetrics & Gynecology
DX: Z01.419 Encounter for gynecological examination (general) (routine) without abnormal findings (principal); Z11.51 Encounter for screening for human papillomavirus (HPV)
CPT/HCPCS: 87626; 88175